=== PATIENT | male | born 1965 | race Caucasian/White ===

== ENCOUNTER → 2018-02-05 16:55 | Outpatient (CLI) | payer OTHER, SELFPAY ==
[2018-02-05 19:08] LABS: Vitamin D,25 Hydroxy 20.8 ng/mL (29.95-100.01)
[2018-02-05 19:15] LABS: Cholesterol 260 mg/dL (200); High Density Lipoprotein 37 mg/dL; PSA,Total - Annual Screen 0.57 ng/mL (0.00-4.00); Thyroid Stim Hormone (TSH) 2.75 uIU/mL (0.358-3.74); Triglycerides 334 mg/dL; Very Low Density Lipoprotein 67 mg/dL (5-40)
== END ==
PROVIDERS: Family Provider Family Medicine; PCP Family Medicine; Visit Provider Family Medicine
DX: E03.9 Hypothyroidism, unspecified (principal); E78.5 Hyperlipidemia, unspecified; E55.9 Vitamin D deficiency, unspecified; Z12.5 Encounter for screening for malignant neoplasm of prostate
CPT/HCPCS: 36415; 80061; 82306; 84153; 84439; 84443; G0103

== ENCOUNTER → 2019-05-27 16:27 | Outpatient (CLI) | payer OTHER, SELFPAY ==
--- NOTE | 2019-05-27 16:29 | CT_ITS ---
STUDY: CT ABDOMEN AND PELVIS WITH AND WITHOUT CONTRAST-CT UROGRAM REASON FOR EXAM: Male, 53 years old. Microhematuria RADIATION DOSAGE (If Supplied By Facility): CTDIvol = ( 26.93 ) mGy, DLP = ( 3506.61 ) mGycm TECHNIQUE: Transaxial images were obtained from the dome of the diaphragm to the symphysis pubis without oral contrast. 100mL Isovue-300 contrast was administered. Sagittal and coronal images were reconstructed. Multiphase imaging in the noncontrasted, corticomedullary and delayed/ureteric phases. Individualized dose optimization techniques were used for this CT. COMPARISON: None. FINDINGS: The visualized lung bases are unremarkable. The visualized portions of the heart are within normal limits. Normal liver. The gallbladder is contracted. Normal spleen. Normal pancreas. Normal bilateral adrenal glands. Noncontrasted imaging shows symmetric kidneys without hydronephrosis or urinary tract calcifications. Isodense cortical lesion of the left kidney measuring 1 cm as initial Hounsfield units of 40. Following IV contrast, the Hounsfield units measure 44, not representing significant contrast enhancement. There is excellent, complete opacification of the right ureter without evidence of filling defects or mass. The left ureter is partially opacified with incomplete distention in the middle third. No obvious left ureter mass seen. Urinary bladder is not well-distended but no obvious urinary bladder mass. Normal visualized stomach. Normal small intestine. There are multiple colonic diverticula consistent with diverticulosis. The appendix is visualized and appears normal. Mild atherosclerosis of the abdominal aorta. Normal inferior vena cava. Normal retroperitoneum. Normal visualized prostate gland. Normal abdominal wall. Normal osseous structures. CT/CT Abd/Pelvis W/WO Contrast IMPRESSION: 1. No hydronephrosis or urinary tract calcifications. 2. Bosniak II left renal cyst (proteinaceous). 3. Atherosclerosis Electronically Signed: Jarrod Corrales MD (Brooks) at 8:56 EST , Service support ,
== END ==
PROVIDERS: Family Provider Family Medicine; PCP Family Medicine; Referring Provider Nurse Practitioner Adult Health; Visit Provider Nurse Practitioner Adult Health
DX: R31.29 Other microscopic hematuria (principal)
CPT/HCPCS: 74178; Q9967

== ENCOUNTER → 2019-09-11 11:56 | Outpatient (CLI) | payer OTHER, SELFPAY ==
[2019-09-11 15:38] LABS: Vitamin D,25 Hydroxy 40.7 ng/mL
[2019-09-11 15:49] LABS: ALB/GLOB Ratio 1.1 RATIO (0.9-2.4); AST(SGOT) 20 U/L (15-37); Alanine Aminotransfer ALT/SGPT 41 U/L (16-61); Albumin, Serum 3.8 g/dL (3.2-5.0); Alkaline Phosphatase 75 U/L (45-117); Anion Gap 7 (5-15); BUN 12 mg/dL (7-18); Calcium,Total 9.2 mg/dL (8.5-10.1); Chloride 105 mmol/L (98-107); Cholesterol 247 mg/dL (200); EST Glomerular Filtration Rate 124 mL/min (>60); Est Glom Filt Rate - Afr Amer 150 mL/min (>60); Globulin 3.6 g/dL (2.2-4.2); Glucose 115 mg/dL (74-106); High Density Lipoprotein 42 mg/dL; Potassium 4.1 mmol/L (3.5-5.1); Protein, Total 7.4 g/dL (6.4-8.2); Sodium Level 136 mmol/L (136-145); Triglycerides 191 mg/dL; Very Low Density Lipoprotein 38 mg/dL (5-40)
== END ==
PROVIDERS: PCP Family Medicine; Referring Provider Family Medicine; Visit Provider Family Medicine
DX: E78.5 Hyperlipidemia, unspecified (principal); Z12.5 Encounter for screening for malignant neoplasm of prostate; E55.9 Vitamin D deficiency, unspecified
CPT/HCPCS: 36415; 80053; 80061; 82306; 84153; G0103

== ENCOUNTER → 2019-10-24 | Outpatient (CLI) | payer OTHER, SELFPAY ==
[2019-10-30 09:08] LABS: Testosterone, % Free 1.91 % (1.50-4.20); Testosterone, Free 5.86 ng/dL (5.00-21.00)
[2019-10-30 15:30] LABS: Sex Hormone-binding Globulin 45.6 nmol/L (19.3-76.4); Testosterone, Total 307 ng/dL (264-916)
== END | disposition home or self-care (01) ==
LOC: MTLAB 10:07
PROVIDERS: PCP Family Medicine; Referring Provider Family Medicine; Visit Provider Family Medicine
DX: N52.9 Male erectile dysfunction, unspecified (principal)
CPT/HCPCS: 36415; 84270; 84402; 84403

== ENCOUNTER → 2019-11-27 | Outpatient (CLI) | payer OTHER, SELFPAY | END | disposition home or self-care (01) | LOC: MTLAB 15:50 | PROVIDERS: PCP Family Medicine; Referring Provider Family Medicine; Visit Provider Family Medicine | DX: N52.9 Male erectile dysfunction, unspecified (principal) | CPT/HCPCS: 36415; 84403 ==

== ENCOUNTER → 2020-02-03 | Outpatient (CLI) | payer OTHER, SELFPAY ==
[2020-02-03 10:38] LABS: AST(SGOT) 20 U/L (15-37); Alanine Aminotransfer ALT/SGPT 36 U/L (16-61); Albumin, Serum 3.8 g/dL (3.2-5.0); Alkaline Phosphatase 83 U/L (45-117); Bilirubin, Direct 0.12 mg/dL (0.00-0.30); Cholesterol 185 mg/dL (200); Globulin 3.5 g/dL (2.2-4.2); High Density Lipoprotein 38 mg/dL; PSA,Total - Annual Screen 0.78 ng/mL (0.00-4.00); Protein, Total 7.3 g/dL (6.4-8.2); Triglycerides 184 mg/dL; Very Low Density Lipoprotein 37 mg/dL (5-40)
== END | disposition home or self-care (01) ==
PROVIDERS: PCP Family Medicine; Referring Provider Family Medicine; Visit Provider Family Medicine
DX: R79.89 Other specified abnormal findings of blood chemistry (principal); Z12.5 Encounter for screening for malignant neoplasm of prostate
CPT/HCPCS: 36415; 80061; 80076; 84153; 84403; G0103

== ENCOUNTER 2020-03-08 17:32 | Inpatient (IN) | payer OTHER, SELFPAY ==
[2020-03-08] VITALS (7 sets, daily range): BP systolic 140–158; BP diastolic 82–103; PULSE 75–84; RESP 14–18; TEMP 36.3–37.2; O2SAT 94–97; BMI 35.5; BMI 35.6; BMI 36.4
--- NOTE | 2020-03-08 17:49 | EKG12_ITS ---
Test Reason : CP ADMIT Blood Pressure : / mmHG Vent. Rate : 076 BPM Atrial Rate : 076 BPM P-R Int : 168 ms QRS Dur : 092 ms QT Int : 388 ms P-R-T Axes : 024 059 025 degrees QTc Int : 436 ms Normal sinus rhythm Normal ECG ] Confirmed by PEARL ONTIVEROS, CARO ([id number]), restaurant expeditor CLARY PAUL ([id number]) on 03/10/2020 7:30:54 AM Referred By: iGnette Perez Confirmed By:CARO KANG MD
[2020-03-08] MEDS: Aspirin 81 MG TAB.CHEW 324 MG PO (17:53)
--- NOTE | 2020-03-08 17:55 | RAD_ITS ---
STUDY: X-RAY CHEST REASON FOR EXAM: Male, 54 years old. chest pain TECHNIQUE: Single frontal view of the chest. COMPARISON: None. FINDINGS: The lungs are clear and expanded. There is no demonstrated pleural abnormality. Normal size heart. Normal mediastinum and jose. Normal visualized pulmonary arteries. Normal visualized aortic arch and descending thoracic aorta. Normal visualized thoracic spine. Normal visualized ribs, clavicles, and shoulders. There is no demonstrated abnormality of the visualized soft tissue structures of the upper abdomen. RAD/Chest 1 View (Portable) IMPRESSION: Normal x-ray examination of the chest. Electronically Signed: Loyd Layne MD at 18:39 EDT , Service support ,
[2020-03-08 18:04] LABS: Absolute Lymphocyte Count 3.43 X10^3/uL (0.83-4.51); Absolute Neutrophil Count 5.7 X10^3/uL (2.0-7.7); Basophil# 0.06 X10^3/uL; Basophil% 0.6 % (0-1); Eosinophil# 0.33 X10^3/uL; Eosinophils% 3.2 % (0-5); Hematocrit 43.2 % (40-54); Hemoglobin 14.5 g/dL (13.0-16.5); Lymphocyte # 3.43 X10^3/ul (4.0); Lymphocyte % 33.2 % (19-41); Mean Corp Hgb Conc 33.6 g/dL (32-36); Mean Corpuscular Hgb 31.2 pg (27.0-32.0); Mean Corpuscular Volume 92.9 fL (80-94); Mean Platelet Vol. 9.9 fl (6.2-12.0); Monocyte# 0.83 X10^3/uL; NRBC Flagged by Analyzer 0 % (0-5); Neutrophil # 5.65 X10^3/uL (2.7-7.7); Neutrophil % 54.6 % (47-70); Platelet Count 301 K/mm3 (150-450); RBC Distribution Width CV 12.6 % (11.6-14.6); Red Blood Count 4.65 M/mm3 (4.6-6.2); White Blood Count 10.3 K/mm3 (4.4-11.0)
--- NOTE | 2020-03-08 18:10 | ED.DCSUM_ITS ---
History of Present Illness Chief Complaint: Chest Pain Informant: Patient, Family Narrative: 54-year-old male with no significant past medical history presents with concern for chest pain. Patient has had intermittent chest pain with exertion in the past 3 weeks. She had increasing pain today. states that he was sweating profusely in bed last night. Admits to shortness of breath. Denies any nausea or vomiting. No history of coronary artery disease. Patient is a heavy smoker. Past Medical History - Allergies and Home Meds Allergies/Adverse Reactions: Allergies No Known Allergies Allergy (Verified 03/08/20 17:54) Primary Care Physician: Jovani Edmonds MD [Primary Care Provider] - Past Medical History: None Surgical History: noncontributory Lives: Spouse/ Significant Other Smoking Status: Heavy Smoker (>10/day) Alcohol: None Drugs: None - Family History Maternal Family History: Reports: Heart Disease - Mother with a history of PCI approximately 25 years prior to current presentation, currently mother is living and turning 87 years old., Hypertension Paternal Family History: Reports: Diabetes Review of Systems General: Denies: Chills, Fever, Sweats Eyes: Denies: Visual changes - bilaterally, Diplopia ENT: Denies: Rhinorrhea, Sore throat Cardiovascular: Reports: Chest pain. Denies: Palpitations Respiratory: Reports: Dyspnea. Denies: Cough, Dyspnea on exertion Gastrointestinal: Denies: Abdominal pain, Nausea, Vomiting, Diarrhea, Melena, Hematochezia Genitourinary: Denies: Dysuria, Hematuria, Frequency Musculoskeletal: Denies: Back pain, Extremity Pain Skin: Denies: Rash, Wounds Neurological: Denies: Headache, Weakness, Numbness Physical Exam Vital Signs/Narrative: Vital Signs Temp Pulse Resp BP Pulse Ox 03/08/20 17:32 99 F 76 16 140/103 H 97 Inital Vital Signs reviewed: Yes General: Well nourished, Well developed, No Acute Distress Head: Normocephalic, Atraumatic Eyes: Perrl, EOMI ENT: Moist mucous membranes, No rhinorrhea Neck: Supple, Nontender Cardiovascular: Regular rate, Regular rhythm, No murmurs Respiratory: No distress, CTA bilaterally, Chest nontender Abdomen: Soft, Nontender, Nondistended, Normal bowel sounds Back: Nontender, Normal Inspection Extremities: Nontender, No edema Skin: Normal color, No rash Neurological: Alert, Oriented x3, Cranial nerves II-XII grossly intact, Normal Strength, Normal Sensation Psychological: Normal affect, Normal Mood Diagnostic/Tx/Re-eval Chest X-Ray - ED: 1 View, Normal - Rhythm Strip Rhythm Strip: Sinus Rhythm Rate: 79 Ectopy: None - EKG Initial EKG Interpretation: Sinus Rhythm - Normal sinus rhythm at 79 bpm. NC interval of 150 ms. QTC of [address] changes. Incomplete right bundle branch block. - Medical Decision Making Patient is well and nontoxic. But otherwise normal vital signs. EKG shows no significant ischemia. Troponin elevated at 0.1. Patient was given aspirin before arrival. Chest x-ray negative. Patient will be given subcutaneous Lovenox. Spoke with clinical psychology professor on-call Dr. Medina who is agreeable with anticoagulation and aspirin. Advise serial troponins and patient will have either stress testing or catheterization tomorrow. Patient agreeable with this plan and admitted in stable condition. Impression: 1. ACS 2. History of tobacco abuse ED Disposition - Plan for ED Patient: Disposition: Acute Care Hospital [facility] Referrals: Jovani Edmonds MD [Primary Care Provider] -
[2020-03-08 18:15] LABS: International Normalized Ratio 0.9; Prothrombin Time (Protime)PT. 11.7 SECONDS (11.7-14.9)
[2020-03-08 18:26] LABS: Anion Gap 6 (5-15); BUN 10 mg/dL (7-18); BUN/Creat Ratio 15.3 RATIO (10-20); Calcium,Total 8.9 mg/dL (8.5-10.1); Chloride 107 mmol/L (98-107); Creatinine, Serum 0.66 mg/dL (0.70-1.30); EST Glomerular Filtration Rate 135 mL/min (>60); Est Glom Filt Rate - Afr Amer 163 mL/min (>60); Estimated Creatinine Clearance 136.28 ml/min; Glucose 100 mg/dL (74-106); Potassium 3.5 mmol/L (3.5-5.1); Sodium Level 139 mmol/L (136-145)
--- NOTE | 2020-03-08 19:15 | HP.PCM_ITS ---
Problem List (1) Unstable angina Status: Acute (2) Elevated troponin Status: Acute (3) Elevated BP without diagnosis of hypertension Status: Acute (4) HLD (hyperlipidemia) Status: Chronic Qualifiers: Hyperlipidemia type: unspecified Qualified Code(s): E78.5 - Hyperlipidemia, unspecified (5) Tobacco use Status: Chronic History of Present Illness Date of Admission: 03/08/20 Chief Complaint: Chest pain The patient is a 54 y/o M w/ PMHx: GERD, HLD, Tobacco use currently on chantix x ~3 weeks who presents to the [facility] ED on 03/08/20 with intermittent chest pain, crushing and stabbing sensation, rated 7 out of 10 in severity prior to ED pr esentation with radiation to the LUE with dyspnea and diaphoresis, worsening over this time, primarily with exertion but now onset with minimal exertion, even steps prompting spouse to bring him to the ED for evaluation. In the ED following rest patient notes chest pain currently resolved, 0 out of 10. Work- up in the ED included T 99, HR 76, BP 140/103, RR 126, 97% on RA, unremarkable CBC, unremarkable coags, BMP with BUN/Cr 10/0.66, Trop 0.105, CXR with no acute cardiopulmonary findings, EKG w/ SR with nonspecific ST-T wave changes with incomplete RBBB. In the ED patient administered ASA 324 mg po x 1. Cardiology paged per ED and pending input. Discussed with ED physician and will plan ASA load, therapeutic lovenox x 1 now. Past Medical History Past Medical History (Chronic Problems): Chronic Problems HLD (hyperlipidemia) (Chronic) Tobacco use (Chronic) Allergies No Known Allergies Allergy (Verified 03/08/20 17:54) Home Medications: Ambulatory Orders Medication Instructions Recorded Atorvastatin Calcium [Lipitor] 20 mg PO QHS 03/08/20 Cholecalciferol (Vitamin D3) 50,000 unit PO TH 03/08/20 [Vitamin D3] Meloxicam 15 mg PO DAILY 03/08/20 Omeprazole [Prilosec] 20 mg PO DAILY 03/08/20 Testosterone [Androgel] 2.5 gm TD DAILY 03/08/20 Varenicline [Chantix] 1 mg PO BID 03/08/20 Surgical History: - - Right knee surgery for cyst, vasectomy, right shoulder surgery, left ring finger surgery, tonsillectomy, sinus surgery. Psychiatric History: No pertinent psych hx Lives: Spouse/ Significant Other Smoking Status: Heavy Smoker (>10/day) Tobacco Use: Cigarettes - Patient currently down to 1 pack/day cigarette tobacco usage since initiation of Chantix x3 weeks, previous this 2+ packs daily. Alcohol: Occasional Drugs: None - *Family History Maternal History Items: Heart Disease - Mother with a history of PCI approximately 25 y ears prior to current presentation, currently mother is living and turning 87 years old., Hypertension Paternal History Items: Diabetes Review of Systems Constitutional: Reports: Weakness, Fatigue. Denies: Anorexia, Chills, Fever, Weight Change HEENT: Denies: Head Aches, Sinus Congestion, Sinus Drainage Cardiovascular: Reports: Chest Pain, Chest Pressure, Heaviness. Denies: Chest Tightness, Light Headedness, Orthopnea, Palpitations, Syncope Respiratory: Reports: Shortness of Breath, Shortness of breath upon exertion. Denies: Cough, Shortness of breath at rest, Sputum production, Wheezing Gastrointestinal: Denies: Abdominal Pain, Nausea, Vomiting Genitourinary: Denies: Dysuria Musculoskeletal: Denies: Joint Pain, Joint Tenderness Skin: Denies: Rash, Wounds Neurological: Denies: Numbness, Tingling, Focal weakness Psychiatric: Denies: Anxiety, Depression, Homicidal Ideations, Suicidal Ideati ons Hematologic/ Lymphatic: Denies: Easy Bruising, Easy Bleeding VTE Information - Inpt Only VTE Present on Admission: No VTE Mechan Device Prophylaxis: SCD's VTE Pharm Prophylaxis ordered?: Yes Subjective: Seated upright in the ED bed, fatigued appearance, no current chest pain but seated and resting. Objective: Physical Examination: General: awake, alert, oriented x 3 and cooperative, seated upright in the ED bed in no apparent distress, no current chest pain. Skin: normal color, turgor, no icterus, cyanosis. HEENT: AT/NC, EOMI, PERRLA, MMM, no carotid bruits or JVD noted. Lungs: CTA bilaterally, moderate effort, moderate decrease BL bases, no rales, ronchi or wheezing. Heart: Regular rate and rhythm; no gallop, rub audible. Abdomen: soft, obese, NTTP, ND, normal BS, no HSM. Extremities: no cyanosis, clubbing, or edema, visible hair bilateral lower extremities, palpable peripheral pulses upper and lower extremities. Neurological: patient awake, alert, oriented x 3; cognitive function intact; pupils equally reactive to light and accomodation; cranial nerves II-XII grossly normal, moving all 4 extremities, no focal deficits, strength mildly to moderately global decreased given acute presentation, currently no chest pain but with any activity severe crushing pain. Psychiatric: affect appears fatigued otherwise normal, no acute evidence of depressive or anxiety feelings. - Physical Exam Vitals/I&O's: Vital Signs Temp Pulse Resp BP Pulse Ox 99 F 76 16 140/103 H 97 03/08/20 17:32 03/08/20 17:32 03/08/20 17:32 03/08/20 17:32 03/08/20 17:32 Oxygen Delivery Method Room Air Weight: 255 lb Body Mass Index (BMI) 35.5 Laboratory Results 03/08/20 17:46: WBC 10.3, RBC 4.65, Hgb 14.5, Hct 43.2, MCV 92.9, MCH 31.2, MCHC 33.6, RDW Std Deviation 43.0, RDW Coeff of Homero 12.6, Plt Count 301, MPV 9.9, Immature Gran % (Auto) 0.400, Neut % (Auto) 54.6, Lymph % (Auto) 33.2, [place] % (Auto) 8.0, Eos % (Auto) 3.2, Baso % (Auto) 0.6, Absolute Neuts (auto) 5.7, Absolute Lymphs (auto) 3.43, Nucleated RBC % 0 03/08/20 17:46: PT 11.7, INR 0.9 03/08/20 17:46: Sodium 139, Potassium 3.5, Chloride 107, Carbon Dioxide 26.0, Anion Gap 6, BUN 10, Creatinine 0.66 L, Estim Creat Clear Calc 136.28, Est GFR (MDRD) Af Amer 163, Est GFR (MDRD) Non-Af 135, BUN/Creatinine Ratio 15.3, Glucose 100, Calcium 8.9, Troponin I 0.105 H Assessment/Plan All Active Problems Unstable angina (Acute) Elevated troponin (Acute) Elevated BP without diagnosis of hypertension (Acute) The patient is a 54 y/o M w/ PMHx: GERD, HLD, Tobacco use currently on chantix x ~3 weeks who presents to the [facility] ED on 03/08/20 with intermittent chest pain, crushing sensation with radiation to the LUE with dyspnea and diaphoresis, worsening over this time, primarily with exertion but now onset with minimal exertion, even steps. 1. Chest Pain secondary to Unstable Angina with Indeterminant Cardiac Enzyme: Work-up in the ED included T 99, HR 76, BP 140/103, RR 126, 97% on RA, unremarkable CBC, unremarkable coags, BMP with BUN/Cr 10/0.66, Trop 0.105, CXR with no acute cardiopulmonary findings, EKG w/ SR with nonspecific ST-T wave changes with incomplete RBBB. Will admit to PCU, place on a monitored bed with serial cardiac enzymes and EKGs. Given presentation, ED contacted Cardiology, Dr. Medina who requested NPO after midnight, planned continued therapeutic lovenox, ASA. Will request ECHO. Will obtain mag and supplement if appropriate. FLP in AM. ASA, NG, morphine. 2. Elevated BP without HTN Diagnosis: BP elevated in the ED upon presentation, labetalol x 1 administered in the ED, will continue to closely monitor. 3. Obesity: Weight loss and lifestyle changes encouraged. 4. Tobacco Abuse: Encouraged cessation, inpatient consultation per RT, hold chantix given cardiac risk with acute presentation as noted. 5. Hyperlipidemia: Continue home statin regimen. AM FLP. 6. GERD: Will continue home PPI. 7. DVT Prophylaxis: SCDs, therapeutic lovenox. Inpatient E&M: 41149 Init Hosp L3
--- NOTE | 2020-03-08 20:30 | ED.RN ---
PCU CALLED AND LOVENOX WAS SENT TO PCU. THEY STATED TO SEND PT AND THEY WOULD ADMINISTER IT.
--- NOTE | 2020-03-08 20:54 | EKG12_ITS ---
Test Reason : Blood Pressure : / mmHG Vent. Rate : 079 BPM Atrial Rate : 079 BPM P-R Int : 150 ms QRS Dur : 102 ms QT Int : 392 ms P-R-T Axes : 029 072 045 degrees QTc Int : 449 ms Normal sinus rhythm Incomplete right bundle branch block Borderline ECG Confirmed by PEARL ONTIVEROS, CARO ([id number]), makeup editor CLARY PAUL ([id number]) on 03/15/2020 11:43:33 AM Referred By: Ginette Perez Confirmed By:CARO KANG MD
--- NOTE | 2020-03-08 20:54 | ECHOCS_ITS ---
Reason For Study: ARRHYTHYMIA Procedure This was a 2D Doppler, Color Flow transthoracic echocardiogram. Exam performed portable in patient room. Left Ventricle Normal LV size. Concentric left ventricular hypertrophy. The estimated ejection fraction is 55-60% %. No regional wall motion abnormalities noted. Right Ventricle Normal right ventricle. Normal systolic function. Atria Normal left atrium. Normal right atrium. Normal atrial septum. Mitral Valve The mitral valve is structurally normal. No prolapse or stenosis seen. Trivial eccentric mitral valve insufficiency. Tricuspid Valve Normal tricuspid valve. Unable to estimate RV systolic pressure due to inadequate jet, pulmonary artery pressure probably normal. Aortic Valve Normal aortic valve. No aortic valve insufficiency. Pulmonic Valve The pulmonic valve is not well visualized. Great Vessels Normal aortic root. Normal pulmonary veins. Normal inferior vena cava. Pericardium/Pleural No pericardial effusion. There is no pleural effusion. Medication Diluted definity 3ml given slow IV push to enhance endocardial definition. MMode/2D Measurements & Calculations LVIDd: 4.7 cm IVSd: 1.1 cm Ao root diam: 3.0 cm LVIDs: 3.2 cm LVPWd: 1.1 cm RVDd: 3.5 cm FS: 31.8 % LAV(MOD-bp): 47.0 ml LVAd ap4: 35.4 cm2 SV(MOD-sp4): 67.7 ml LAV(MOD-bp) Indexed: 20.0 ml/m2 EDV(MOD-sp4): 119.5 ml LAV(MOD-sp2): 53.5 ml EDV(sp4-el): 122.4 ml LAV(MOD-sp4): 39.2 ml LVAs ap4: 21.0 cm2 ESV(MOD-sp4): 51.8 ml ESV(sp4-el): 51.2 ml EF(MOD-sp4): 56.7 % EF(sp4-el): 58.1 % SV(sp4-el): 71.1 ml LA A4 area: 16.5 cm2 LA dimension(2D): 3.7 cm RA A4 area: 13.5 cm2 Time Measurements MV dec time: 0.20 sec Doppler Measurements & Calculations MV E max maico: 97.8 cm/sec Lat Peak E' Maico: 16.2 cm/sec Med Peak E' Maico: 10.9 cm/sec MV A max maico: 77.6 cm/sec E/E' lat: 6.1 E/E' med: 9.0 MV E/A: 1.3 Ao V2 max: 157.3 cm/sec LV V1 max: 132.8 cm/sec PA V2 max: 111.5 cm/sec Ao max P.9 mmHg LV V1 max P.1 mmHg TR max maico: 248.9 cm/sec TR max P.8 mmHg Interpretation Summary Normal LV systolic Function EF 55-60% Ordering Physician: Ginette Perez Referring Physician: JEFF PLASENCIA Performed By: Jaja Andrews RDCS
[2020-03-08] MEDS: Atorvastatin Calcium 20 MG Tablet PO (21:04)
[2020-03-08] MEDS: Enoxaparin 120 MG/0.8 ML Syringe SC (21:04)
[2020-03-08] MEDS: Carvedilol 6.25 MG Tablet PO (21:04)
[2020-03-08] MEDS: 0.9% Normal Saline 1,000 ML 100 ML IV (21:09)
[2020-03-08] MEDS: 0.9% Saline Lock 10 ML Syringe IV (21:09)
[2020-03-08 22:14] LABS: Magnesium 1.9 mg/dL (1.6-2.6)
[2020-03-09] VITALS (22 sets, daily range): BP systolic 114–200; BP diastolic 66–101; PULSE 63–89; RESP 12–35; TEMP 36.2–36.6; O2SAT 80–98
[2020-03-09] MEDS: Carvedilol 6.25 MG Tablet PO ×2 (05:35→22:30)
[2020-03-09] MEDS: Aspirin 81 MG TAB.CHEW PO (05:35)
--- NOTE | 2020-03-09 05:55 | EKG12_ITS ---
Test Reason : AM Blood Pressure : / mmHG Vent. Rate : 077 BPM Atrial Rate : 077 BPM P-R Int : 162 ms QRS Dur : 086 ms QT Int : 382 ms P-R-T Axes : 033 067 052 degrees QTc Int : 432 ms Normal sinus rhythm Normal ECG Confirmed by PEARL ONTIVEROS, CARO ([id number]), research editor CLARY PAUL ([id number]) on 03/10/2020 7:26:50 AM Referred By: Ginette Perez Confirmed By:CARO KANG MD
[2020-03-09] MEDS: 0.9% Normal Saline 1,000 ML 100 ML IV ×2 (06:32→17:55)
[2020-03-09 06:50] LABS: Absolute Lymphocyte Count 3.56 X10^3/uL (0.83-4.51); Absolute Neutrophil Count 4.4 X10^3/uL (2.0-7.7); Basophil# 0.04 X10^3/uL; Basophil% 0.4 % (0-1); Eosinophil# 0.32 X10^3/uL; Eosinophils% 3.6 % (0-5); Hematocrit 43.4 % (40-54); Hemoglobin 14.2 g/dL (13.0-16.5); Lymphocyte # 3.56 X10^3/ul (4.0); Lymphocyte % 39.5 % (19-41); Mean Corp Hgb Conc 32.7 g/dL (32-36); Mean Corpuscular Hgb 30.9 pg (27.0-32.0); Mean Corpuscular Volume 94.3 fL (80-94); Mean Platelet Vol. 9.8 fl (6.2-12.0); Monocyte# 0.69 X10^3/uL; Monocyte% 7.7 % (0-10); NRBC Flagged by Analyzer 0 % (0-5); Neutrophil # 4.37 X10^3/uL (2.7-7.7); Neutrophil % 48.5 % (47-70); Platelet Count 289 K/mm3 (150-450); RBC Distribution Width CV 12.5 % (11.6-14.6); RBC Distribution Width SD 43.1 fl (35.1-43.9)
[2020-03-09 07:21] LABS: ALB/GLOB Ratio 1.1 RATIO (0.9-2.4); AST(SGOT) 24 U/L (15-37); Alanine Aminotransfer ALT/SGPT 36 U/L (16-61); Albumin, Serum 3.4 g/dL (3.2-5.0); Alkaline Phosphatase 66 U/L (45-117); Anion Gap 6 (5-15); BUN 10 mg/dL (7-18); BUN/Creat Ratio 14.6 RATIO (10-20); Calcium,Total 8.4 mg/dL (8.5-10.1); Chloride 111 mmol/L (98-107); Cholesterol 179 mg/dL (200); Creatinine, Serum 0.68 mg/dL (0.70-1.30); EST Glomerular Filtration Rate 128 mL/min (>60); Est Glom Filt Rate - Afr Amer 155 mL/min (>60); Estimated Creatinine Clearance 128.23 ml/min; Globulin 3.2 g/dL (2.2-4.2); Glucose 112 mg/dL (74-106); High Density Lipoprotein 37 mg/dL; Protein, Total 6.6 g/dL (6.4-8.2); Sodium Level 141 mmol/L (136-145); Triglycerides 341 mg/dL; Very Low Density Lipoprotein 68 mg/dL (5-40)
--- NOTE | 2020-03-09 09:27 | CON.PCM_ITS ---
Reason for Consult Date of Consultation: 03/09/20 Reason for Consultation: CAD,NSTEMI History of Present Illness: The patient is a 54 year old M [] This patient presented to the ER yesterday complaining of symptoms of chest pain retrosternal with radiation to the left arm and left back. Symptom has been ongoing for the last 2 weeks. Symptoms is mainly on exertion typical of unstable angina. He has significant family history of CAD mother had a history of coronary artery stent And also has been a heavy smoker. No history of diabetes no history of prior myocardial infarction or stroke. Cardiac examination essentially normal. Electrocardiogram reveals underlying normal sinus with a heart rate of probably 77 nonspecific change mainly in the inferior lead. Subsequent evaluation with the cardiac biomarkers showed mild elevation of serum troponin. He been on medical therapy with Lovenox, beta-pavel, atorvastatin and low-dose aspirin. This morning at bedside his echocardiogram showed LV function is preserved ejection fraction of more than 60%. No segmental wall motion abnormality RV function appeared normal as well. Based on the clinical presentation and significant family history of CAD ongoing symptoms of chest pain for the last 2 weeks very significant for CAD Clinical diagnosis of non-ST elevation myocardial infarction currently on medical therapy stable at rest with no symptoms of chest pain at rest recommend to proceed with cardiac catheterization/approach will be right radial artery approach and will consider myocardial revascularization based on the finding of cardiac catheterization. Cardiac care plan discussed with the patient, nursing staff and will proceed with cardiac catheterization today. Past Medical History Allergies/Adverse Reactions: Allergies No Known Allergies Allergy (Verified 03/08/20 17:54) Home Medications: Ambulatory Orders Medication Instructions Recorded Atorvastatin Calcium [Lipitor] 20 mg PO QHS 03/08/20 Cholecalciferol (Vitamin D3) 50,000 unit PO TH 03/08/20 [Vitamin D3] Meloxicam 15 mg PO DAILY 03/08/20 Omeprazole [Prilosec] 20 mg PO DAILY 03/08/20 Testosterone [Androgel] 2.5 gm TD DAILY 03/08/20 Varenicline [Chantix] 1 mg PO BID 03/08/20 Past Medical History (Chronic Problems): Chronic Problems HLD (hyperlipidemia) (Chronic) Tobacco use (Chronic) Surgical History: - - Right knee surgery for cyst, vasectomy, right shoulder surgery, left ring finger surgery, tonsillectomy, sinus surgery. Psychiatric History: No pertinent psych hx - *Family History Maternal History Items: Heart Disease - Mother with a history of PCI approximately 25 years prior to current presentation, currently mother is living and turning 87 years old., Hypertension Paternal History Items: Diabetes Lives: Spouse/ Significant Other Smoking Status: Current every day smoker Tobacco Use: Cigarettes Alcohol: Occasional Drugs: None Review of Systems - Review of Systems Cardiovascular: Denies: Shortness of Breath, Orthopnea, PND, Peripheral Edema, Palpitations, Lightheadedness, Dizziness, Near Syncope, Syncope Respiratory: Denies: Cough, Sputum Production, Hemoptysis Gastrointestinal: Denies: Hematemesis, Hematochezia, Melena Genitourinary: Denies: Dysuria, Hematuria Skin: Denies: Rash Objective: Vital Signs Temp Pulse Resp BP Pulse Ox 97.8 F 77 17 127/73 H 95 03/09/20 05:33 03/09/20 07:00 03/09/20 05:33 03/09/20 05:33 03/09/20 05:33 Oxygen Delivery Method Room Air Weight: 257 lb 7.999 oz Body Mass Index (BMI) 36.4 Intake and Output for Last 24 Hours 03/07/20 03/08/20 03/09/20 23:59 23:59 23:59 Intake Total 360 / 360 948.33 / 948.33 Balance 360 / 360 948.33 / 948.33 03/08/20 17:46: WBC 10.3, RBC 4.65, Hgb 14.5, Hct 43.2, MCV 92.9, MCH 31.2, MCHC 33.6, Plt Count 301, MPV 9.9, Immature Gran % (Auto) 0.400, Neut % (Auto) 54.6, Lymph % (Auto) 33.2, [place] % (Auto) 8.0, Eos % (Auto) 3.2, Baso % (Auto) 0.6, Absolute Neuts (auto) 5.7, Nucleated RBC % 0 03/08/20 17:46: PT 11.7, INR 0.9 03/08/20 17:46: Sodium 139, Potassium 3.5, Chloride 107, Carbon Dioxide 26.0, Anion Gap 6, BUN 10, Creatinine 0.66 L, Est GFR (MDRD) Af Amer 163, Est GFR (MDRD) Non-Af 135, BUN/Creatinine Ratio 15.3, Glucose 100, Calcium 8.9, Troponin I 0.105 H 03/08/20 21:30: Magnesium 1.9, Troponin I 0.096 H 03/09/20 00:05: Troponin I 0.099 H 03/09/20 06:30: WBC 9.0, RBC 4.60, Hgb 14.2, Hct 43.4, MCV 94.3 H, MCH 30.9, MCHC 32.7, Plt Count 289, MPV 9.8, Immature Gran % (Auto) 0.300, Neut % (Auto) 48.5, Lymph % (Auto) 39.5, [place] % (Auto) 7.7, Eos % (Auto) 3.6, Baso % (Auto) 0.4, Absolute Neuts (auto) 4.4, Nucleated RBC % 0 03/09/20 06:30: Sodium 141, Potassium 4.0, Chloride 111 H, Carbon Dioxide 24.0, Anion Gap 6, BUN 10, Creatinine 0.68 L, Est GFR (MDRD) Af Amer 155, Est GFR (MDRD) Non-Af 128, BUN/Creatinine Ratio 14.6, Glucose 112 H, Calcium 8.4 L, Total Bilirubin 0.30, Triglycerides 341 H, Cholesterol 179, LDL Cholesterol 74, VLDL Cholesterol 68 H, HDL Cholesterol 37 L Rhythm: EKG: ECHO: Stress Test: Cardiac Cath: PCI: CT Surgery: Holter monitor: EPS: PPM: CXR: Chest CT Scan: Assessment/Plan Based on clinical presentation, will proceed with cardiac catheterization Clinical diagnosis #1 CAD, non-ST elevation myocardial function #2 heavy smoker 3. Significant family history of CAD. We will proceed with corticosteroid patient and discuss plan of myocardial revascularization based on the findings. Risk and benefit of the procedure explained in detail to the patient elected to proceed informed consent obtained.
--- NOTE | 2020-03-09 09:47 | CASEMGMT ---
Addendum entered by Mackenzie Cuellar 03/09/20 13:31: Also [facility] and [facility] are in-network. Sofia AGUILA CM Original Note: According to the [facility] website, the following are in-network tertiary facilities: [place], [facility], [facility], [facility], and . Sofia AGUILA CM
--- NOTE | 2020-03-09 12:33 | PN_ITS ---
<Elton Kapadia - Last Filed: 03/09/20 12:33> Patient Problems: Active and Suspected Problems Unstable angina (Acute) Elevated troponin (Acute) Elevated BP without diagnosis of hypertension (Acute) Reason for Visit: Chest pain Subjective: Patient seen and examined prior to heart catheterization today. He is resting comfortably in bed no acute distress. He has no chest pain, shortness of breath, tightness, pressure, heaviness. This past week he has been getting lightheaded on standing, he reports he did not experience this today. No lower extremity edema. No palpitations. Vitals/I&O's: Vital Signs Temp Pulse Resp BP Pulse Ox 97.8 F 77 17 127/73 H 95 03/09/20 05:33 03/09/20 11:00 03/09/20 05:33 03/09/20 05:33 03/09/20 07:48 Oxygen Delivery Method Room Air Weight: 257 lb 7.999 oz Body Mass Index (BMI) 36.4 Intake and Output for Last 24 Hours 03/07/20 03/08/20 03/09/20 23:59 23:59 23:59 Intake Total 360 / 360 1008.33 / 1008.33 Balance 360 / 360 1008.33 / 1008.33 General: Alert, Oriented x3, Cooperative HEENT: Atraumatic, PERRLA, EOMI, Normocephalic Neck: Supple, No JVD, Negative Carotid Bruits Lungs: Clear to auscultation, Normal air movement Cardiovascular: Regular rate, No murmurs Abdomen: Bowel Sounds Present, Soft, Non Tender Extremities: No edema, Capillary Refill Less than 3 Seconds Skin: No rashes, No breakdown Musculoskeletal: No Tenderness to Palpation of Joints or Extremities Neurological: Cranial nerves II-XII grossly intact Psych/Mental Status: Normal Affect, Appropriate, Alert and oriented to time, place, person, mood and affect Laboratory Results 03/08/20 17:46: WBC 10.3, RBC 4.65, Hgb 14.5, Hct 43.2, MCV 92.9, MCH 31.2, MCHC 33.6, RDW Std Deviation 43.0, RDW Coeff of Homero 12.6, Plt Count 301, MPV 9.9, Immature Gran % (Auto) 0.400, Neut % (Auto) 54.6, Lymph % (Auto) 33.2, Salem % (Auto) 8.0, Eos % (Auto) 3.2, Baso % (Auto) 0.6, Absolute Neuts (auto) 5.7, Absolute Lymphs (auto) 3.43, Nucleated RBC % 0 03/08/20 17:46: PT 11.7, INR 0.9 03/08/20 17:46: Sodium 139, Potassium 3.5, Chloride 107, Carbon Dioxide 26.0, Anion Gap 6, BUN 10, Creatinine 0.66 L, Estim Creat Clear Calc 136.28, Est GFR (MDRD) Af Amer 163, Est GFR (MDRD) Non-Af 135, BUN/Creatinine Ratio 15.3, Glucose 100, Calcium 8.9, Troponin I 0.105 H 03/08/20 21:30: Magnesium 1.9, Troponin I 0.096 H 03/09/20 00:05: Troponin I 0.099 H 03/09/20 06:30: WBC 9.0, RBC 4.60, Hgb 14.2, Hct 43.4, MCV 94.3 H, MCH 30.9, MCHC 32.7, RDW Std Deviation 43.1, RDW Coeff of Homero 12.5, Plt Count 289, MPV 9.8, Immature Gran % (Auto) 0.300, Neut % (Auto) 48.5, Lymph % (Auto) 39.5, Salem % (Auto) 7.7, Eos % (Auto) 3.6, Baso % (Auto) 0.4, Absolute Neuts (auto) 4.4, Absolute Lymphs (auto) 3.56, Nucleated RBC % 0 03/09/20 06:30: Sodium 141, Potassium 4.0, Chloride 111 H, Carbon Dioxide 24.0, Anion Gap 6, BUN 10, Creatinine 0.68 L, Estim Creat Clear Calc 128.23, Est GFR (MDRD) Af Amer 155, Est GFR (MDRD) Non-Af 128, BUN/Creatinine Ratio 14.6, Glucose 112 H, Calcium 8.4 L, Total Bilirubin 0.30, AST 24, ALT 36, Alkaline Phosphatase 66, Total Protein 6.6, Albumin 3.4, Globulin 3.2, Albumin/Globulin Ratio 1.1, Triglycerides 341 H, Cholesterol 179, LDL Cholesterol 74, VLDL Cholesterol 68 H, HDL Cholesterol 37 L Current Medications Acetaminophen (Acetaminophen 325 Mg Tablet) 650 mg PO Q6H PRN PRN PRN Reason: Pain Score 1-10/Temp > 100.7 F Al Hydroxide/Mg Hydroxide (Mag Hydrox/Al Hydrox/Simeth 30 Ml Udc) 30 ml PO Q6H PRN PRN PRN Reason: Gastric Burning Albuterol Sulfate (Albuterol 2.5 Mg/3 Ml Vial.Neb.) 2.5 mg INHALATION Q2H PRN PRN PRN Reason: Dyspnea, wheezing Aspirin (Aspirin 81 Mg Tab.Chew) 81 mg PO DAILY@0800 [facility] Last Admin: 03/09/20 05:35 Dose: 81 mg Documented by: Atorvastatin Calcium (Atorvastatin Calcium 20 Mg Tablet) 20 mg PO QHS [facility] Last Admin: 03/08/20 21:04 Dose: 20 mg Documented by: Carvedilol (Carvedilol 6.25 Mg Tablet) 6.25 mg PO BID [facility] Last Admin: 03/09/20 05:35 Dose: 6.25 mg Documented by: Enoxaparin Sodium (Enoxaparin 120 Mg/0.8 Ml Syringe) 120 mg SC Q12 [facility] Guaifenesin (Guaifenesin 10 Ml Udc (200mg/10ml)) 20 ml PO Q4H PRN PRN PRN Reason: COUGH Sodium Chloride () 1,000 mls @ 100 mls/hr IV .Q10H [facility] Last Admin: 03/09/20 06:32 Dose: 100 mls/hr Documented by: Magnesium Hydroxide (Magnesium Hydroxide 30 Ml Udc) 30 ml PO DAILY PRN PRN PRN Reason: Constipation Melatonin (Melatonin 3 Mg Tablet) 3 mg PO QHS PRN PRN PRN Reason: INSOMNIA Morphine Sulfate (Morphine 2 Mg/Ml Syringe) 2 mg IV Q3H PRN PRN PRN Reason: Pain Score 6-10 Nitroglycerin (Nitroglycerin (Inpatient Use) 0.4 Mg Tab.Subl) 0.4 mg SUBLINGUAL Q5M PRN PRN Reason: CARDIAC/CHEST PAIN Ondansetron HCl (Ondansetron 4 Mg/2 Ml Vial) 4 mg IV Q8H PRN PRN PRN Reason: NAUSEA/VOMITING Oxycodone HCl (Oxycodone 5 Mg Tablet) 5 mg PO Q4H PRN PRN PRN Reason: Pain Score 4-5 Pantoprazole Sodium (Pantoprazole Sodium 20 Mg Tablet) 20 mg PO DAILY [place] Prochlorperazine Edisylate (Prochlorperazine 10 Mg/2 Ml Vial) 5 mg IV Q4H PRN PRN PRN Reason: Breakthrough Nausea/Vomiting Psyllium Hydrophilic Mucilloid (Psyllium 1 Packet) 1 packet PO DAILY PRN PRN PRN Reason: Constipation Senna/Docusate Sodium (Senna/Docusate Sodium 1 Tablet) 2 tablet PO BID PRN PRN PRN Reason: Constipation Sodium Chloride (0.9% Saline Lock 10 Ml Syringe) 10 - 40 ml IV UD PRN PRN Reason: SALINE FLUSH Last Admin: 03/08/20 21:09 Dose: 10 ml Documented by: Throat Lozenges (Benzocaine/Menthol 1 Lozenge) 1 lozenge MUCOUS MEM Q2H PRN PRN PRN Reason: SORE THROAT STROKE Vital Signs/Narrative: Vital Signs Pulse 03/09/20 11:00 77 Medical Necessity - Tobacco Use Smoking Status: Current every day smoker Tobacco Use: Cigarettes Assessment/Plan All Active Problems Unstable angina (Acute) Elevated troponin (Acute) Elevated BP without diagnosis of hypertension (Acute) 1. NSTEMI - to medical laboratory manager today. continue asa/statin/coreg 2. Nicotine abuse - needs complete cessation. Pt on chantix at home. 3. GERD - ppi 5. HTN - initiated coreg 6. HLD - statin DVT ppx: held for cath This patient was seen by Elton Kapadia PA-C under the supervision of Doctor Nara. <Lisandra Bains - Last Filed: 03/09/20 13:38> Vitals/I&O's: Vital Signs Temp Pulse Resp BP Pulse Ox 97.8 F 77 17 127/73 H 95 03/09/20 05:33 03/09/20 11:00 03/09/20 05:33 03/09/20 05:33 03/09/20 07:48 Oxygen Delivery Method Room Air Weight: 257 lb 7.999 oz Body Mass Index (BMI) 36.4 Intake and Output for Last 24 Hours 03/07/20 03/08/20 03/09/20 23:59 23:59 23:59 Intake Total 360 / 360 1008.33 / 1008.33 Balance 360 / 360 1008.33 / 1008.33 Laboratory Results 03/08/20 17:46: WBC 10.3, RBC 4.65, Hgb 14.5, Hct 43.2, MCV 92.9, MCH 31.2, MCHC 33.6, RDW Std Deviation 43.0, RDW Coeff of Homero 12.6, Plt Count 301, MPV 9.9, Immature Gran % (Auto) 0.400, Neut % (Auto) 54.6, Lymph % (Auto) 33.2, Salem % (Auto) 8.0, Eos % (Auto) 3.2, Baso % (Auto) 0.6, Absolute Neuts (auto) 5.7, Absolute Lymphs (auto) 3.43, Nucleated RBC % 0 03/08/20 17:46: PT 11.7, INR 0.9 03/08/20 17:46: Sodium 139, Potassium 3.5, Chloride 107, Carbon Dioxide 26.0, Anion Gap 6, BUN 10, Creatinine 0.66 L, Estim Creat Clear Calc 136.28, Est GFR (MDRD) Af Amer 163, Est GFR (MDRD) Non-Af 135, BUN/Creatinine Ratio 15.3, Glucose 100, Calcium 8.9, Troponin I 0.105 H 03/08/20 21:30: Magnesium 1.9, Troponin I 0.096 H 03/09/20 00:05: Troponin I 0.099 H 03/09/20 06:30: WBC 9.0, RBC 4.60, Hgb 14.2, Hct 43.4, MCV 94.3 H, MCH 30.9, MCHC 32.7, RDW Std Deviation 43.1, RDW Coeff of Homero 12.5, Plt Count 289, MPV 9.8, Immature Gran % (Auto) 0.300, Neut % (Auto) 48.5, Lymph % (Auto) 39.5, Salem % (Auto) 7.7, Eos % (Auto) 3.6, Baso % (Auto) 0.4, Absolute Neuts (auto) 4.4, Absolute Lymphs (auto) 3.56, Nucleated RBC % 0 03/09/20 06:30: Sodium 141, Potassium 4.0, Chloride 111 H, Carbon Dioxide 24.0, Anion Gap 6, BUN 10, Creatinine 0.68 L, Estim Creat Clear Calc 128.23, Est GFR (MDRD) Af Amer 155, Est GFR (MDRD) Non-Af 128, BUN/Creatinine Ratio 14.6, Glucose 112 H, Calcium 8.4 L, Total Bilirubin 0.30, AST 24, ALT 36, Alkaline Phosphatase 66, Total Protein 6.6, Albumin 3.4, Globulin 3.2, Albumin/Globulin Ratio 1.1, Triglycerides 341 H, Cholesterol 179, LDL Cholesterol 74, VLDL Cholesterol 68 H, HDL Cholesterol 37 L Current Medications Acetaminophen (Acetaminophen 325 Mg Tablet) 650 mg PO Q6H PRN PRN PRN Reason: Pain Score 1-10/Temp > 100.7 F Al Hydroxide/Mg Hydroxide (Mag Hydrox/Al Hydrox/Simeth 30 Ml Udc) 30 ml PO Q6H PRN PRN PRN Reason: Gastric Burning Albuterol Sulfate (Albuterol 2.5 Mg/3 Ml Vial.Neb.) 2.5 mg INHALATION Q2H PRN PRN PRN Reason: Dyspnea, wheezing Aspirin (Aspirin 81 Mg Tab.Chew) 81 mg PO DAILY@0800 [facility] Last Admin: 03/09/20 05:35 Dose: 81 mg Documented by: Atorvastatin Calcium (Atorvastatin Calcium 20 Mg Tablet) 20 mg PO QHS [facility] Last Admin: 03/08/20 21:04 Dose: 20 mg Documented by: Carvedilol (Carvedilol 6.25 Mg Tablet) 6.25 mg PO BID [facility] Last Admin: 03/09/20 05:35 Dose: 6.25 mg Documented by: Enoxaparin Sodium (Enoxaparin 120 Mg/0.8 Ml Syringe) 120 mg SC Q12 [facility] Guaifenesin (Guaifenesin 10 Ml Udc (200mg/10ml)) 20 ml PO Q4H PRN PRN PRN Reason: COUGH Sodium Chloride () 1,000 mls @ 100 mls/hr IV .Q10H [facility] Last Admin: 03/09/20 06:32 Dose: 100 mls/hr Documented by: Magnesium Hydroxide (Magnesium Hydroxide 30 Ml Udc) 30 ml PO DAILY PRN PRN PRN Reason: Constipation Melatonin (Melatonin 3 Mg Tablet) 3 mg PO QHS PRN PRN PRN Reason: INSOMNIA Morphine Sulfate (Morphine 2 Mg/Ml Syringe) 2 mg IV Q3H PRN PRN PRN Reason: Pain Score 6-10 Nitroglycerin (Nitroglycerin (Inpatient Use) 0.4 Mg Tab.Subl) 0.4 mg SUBLINGUAL Q5M PRN PRN Reason: CARDIAC/CHEST PAIN Ondansetron HCl (Ondansetron 4 Mg/2 Ml Vial) 4 mg IV Q8H PRN PRN PRN Reason: NAUSEA/VOMITING Oxycodone HCl (Oxycodone 5 Mg Tablet) 5 mg PO Q4H PRN PRN PRN Reason: Pain Score 4-5 Pantoprazole Sodium (Pantoprazole Sodium 20 Mg Tablet) 20 mg PO DAILY [place] Prochlorperazine Edisylate (Prochlorperazine 10 Mg/2 Ml Vial) 5 mg IV Q4H PRN PRN PRN Reason: Breakthrough Nausea/Vomiting Psyllium Hydrophilic Mucilloid (Psyllium 1 Packet) 1 packet PO DAILY PRN PRN PRN Reason: Constipation Senna/Docusate Sodium (Senna/Docusate Sodium 1 Tablet) 2 tablet PO BID PRN PRN PRN Reason: Constipation Sodium Chloride (0.9% Saline Lock 10 Ml Syringe) 10 - 40 ml IV UD PRN PRN Reason: SALINE FLUSH Last Admin: 03/08/20 21:09 Dose: 10 ml Documented by: Throat Lozenges (Benzocaine/Menthol 1 Lozenge) 1 lozenge MUCOUS MEM Q2H PRN PRN PRN Reason: SORE THROAT STROKE Vital Signs/Narrative: Vital Signs Pulse 03/09/20 11:00 77 Assessment/Plan Patient seen by Elton Kapadia PA-C under my supervision Patient seen and examined. He was admitted with a complaint of chest pain and found to have elevated troponins. He is being managed for Nonstemi. he is to go for cardiac cath today. Patient had no complaints this morning. He denied shortness of breath, cough, chest pain, palpitations, dizziness, nausea or vomiting. Review of systems otherwise negative. O/E:' Vital Signs Temp Pulse Resp BP Pulse Ox 97.8 F 77 17 127/73 H 95 03/09/20 05:33 03/09/20 11:00 03/09/20 05:33 03/09/20 05:33 03/09/20 07:48 General: Alert, Oriented x3, Cooperative HEENT: Atraumatic, PERRLA, EOMI, Normocephalic Neck: Supple, No JVD, Negative Carotid Bruits Lungs: Clear to auscultation, Normal air movement Cardiovascular: Regular rate, No murmurs Abdomen: Bowel Sounds Present, Soft, Non Tender Extremities: No edema, Capillary Refill Less than 3 Seconds Skin: No rashes, No breakdown Musculoskeletal: No Tenderness to Palpation of Joints or Extremities Neurological: Cranial nerves II-XII grossly intact Psych/Mental Status: Normal Affect, Appropriate, Alert and oriented to time, place, person, mood and affect Plan is for patient to have cardiac cath today. to continue aspirin and plavix, as well as high intensity statin, and carvedilol. cardiology on board. Counseled to quit smoking. Rest as per Elton Kapadia PA-C's note, which I have reviewed and endorsed. Inpatient E&M: 35452 Subs Hosp L3
--- NOTE | 2020-03-09 13:15 | NURSING ---
Report called to ICU nurse for pt to be transferred to ICU from senior cytogenetics laboratory director.
[2020-03-09 14:26] LABS: ACT Activated Clotting Time 208 sec (74-137)
[2020-03-09 14:26] LABS: ACT Activated Clotting Time 219 sec (74-137)
[2020-03-09 14:26] LABS: ACT Activated Clotting Time 186 sec (74-137)
--- NOTE | 2020-03-09 14:44 | EKG12_ITS ---
Test Reason : CHEST PAIN Blood Pressure : / mmHG Vent. Rate : 076 BPM Atrial Rate : 076 BPM P-R Int : 160 ms QRS Dur : 084 ms QT Int : 382 ms P-R-T Axes : -08 048 042 degrees QTc Int : 429 ms Normal sinus rhythm Normal ECG When compared with ECG of 09-MAR-2020 19:05, MANUAL COMPARISON REQUIRED, DATA IS UNCONFIRMED Confirmed by GERSON ONTIVEROS, SELENA ([id number]), assistant film editor DALLAS MACIAS ([id number]) on 03/19/2020 12:46:20 PM Referred By: Ginette Perez Confirmed By:MARIELENA NIETO MD
--- NOTE | 2020-03-09 19:05 | EKG12_ITS ---
Test Reason : CP Blood Pressure : / mmHG Vent. Rate : 076 BPM Atrial Rate : 076 BPM P-R Int : 156 ms QRS Dur : 086 ms QT Int : 378 ms P-R-T Axes : 011 063 086 degrees QTc Int : 425 ms Normal sinus rhythm ST elevation consider inferior injury or acute infarct * ACUTE NE Abnormal ECG Confirmed by PEARL ONTIVEROS, CARO ([id number]), scientific editor CLARY PAUL ([id number]) on 03/15/2020 12:58:46 PM Referred By: Ginette Perez Confirmed By:CARO KANG MD
--- NOTE | 2020-03-09 19:31 | EKG12_ITS ---
Test Reason : PCI Blood Pressure : / mmHG Vent. Rate : 075 BPM Atrial Rate : 075 BPM P-R Int : 150 ms QRS Dur : 092 ms QT Int : 378 ms P-R-T Axes : 009 065 046 degrees QTc Int : 422 ms Normal sinus rhythm Normal ECG When compared with ECG of 09-MAR-2020 05:02, No significant change was found Confirmed by GERSON ONTIVEROS, SELENA ([id number]), clinical editor DALLAS MACIAS ([id number]) on 03/19/2020 12:46:29 PM Referred By: Ginette Perez Confirmed By:MARIELENA NIETO MD
--- NOTE | 2020-03-09 19:40 | RAD_ITS ---
STUDY: X-RAY CHEST REASON FOR EXAM: Male, 54 years old. STEMI TECHNIQUE: 2 AP portable view of the chest. COMPARISON: March 08, 2020 FINDINGS: The lungs are clear and expanded. There is no demonstrated pleural abnormality. Normal size heart. Normal mediastinum and jose. Normal visualized pulmonary arteries. Normal visualized aortic arch and descending thoracic aorta. Normal visualized thoracic spine. Normal visualized ribs, clavicles, and shoulders. There is no demonstrated abnormality of the visualized soft tissue structures of the upper abdomen. RAD/Chest 1 View (Portable) IMPRESSION: Normal x-ray examination of the chest. Electronically Signed: Alex Mendes MD at 20:39 EDT , Service support ,
--- NOTE | 2020-03-09 20:08 | NURSING ---
During shift report, pt c/o chest pain. EKG performed and STEMI alert was called. Dr. Medina and Dr. Stiles at bedside. Cath team called in and pt transported to clinical laboratory service teacher via pt bed. has spoken with pt and is waiting in clinical laboratory service teacher waiting room for procedure to complete. R Femoral Sheath in intact, soft, and no bruit or thrill present, no S&S of hematoma. Pt to be transferred to [facility] for further treatment, post cath. Pt was pain free at time of transport to clinical laboratory service teacher and transferred with O2 and on compliance monitor. Chart has been printed and ready for transport. Pt in agreement with plan of care and transfer.
[2020-03-09] MEDS: HEPARIN/D5w 25,000 UNITS 25,000 UNITS/250 ML IV.SOLN. 7 UNITS IV (20:43)
--- NOTE | 2020-03-09 20:44 | NURSING ---
Pt arrived to room via bed, on surveillance monitor, heparin gtt initiated and infusing. No PTT drawn prior to initiation of gtt.
[2020-03-09] MEDS: LORazepam 1 MG Tablet PO (22:30)
[2020-03-09] MEDS: Atorvastatin Calcium 40 MG Tablet PO (22:30)
[2020-03-09] MEDS: TICAGRELOR 90 MG TABLET PO (22:30)
[2020-03-10] VITALS: BP 163/73; PULSE 72; RESP 13; TEMP 36.8; O2SAT 98
--- NOTE | 2020-03-10 00:11 | NURSING ---
Jodi, ASSEMBLER BODY at [facility] called to obtain report. Pt will be going to room 358 in ICU due to having a sheath present.
[2020-03-10 00:45] VITALS: BP 161/84; PULSE 82
[2020-03-10] MEDS: 0.9% Saline Lock 10 ML Syringe IV (00:45)
[2020-03-10] MEDS: hydrALAZINE 20 MG/ML Vial 10 MG IV (00:45)
[2020-03-10 01:00] VITALS: BP 140/69; PULSE 87; RESP 16; O2SAT 99
--- NOTE | 2020-03-10 01:40 | NURSING ---
[facility] has delayed transfer for patient to 02:00.
[2020-03-10 02:00] VITALS: BP 146/71; PULSE 79; RESP 14; O2SAT 98
--- NOTE | 2020-03-10 02:19 | NURSING ---
[facility] is here for transport. Called updated report to MINGO Zapata at [facility].
[2020-03-10 02:48] VITALS: BP 160/81; PULSE 86; RESP 16; O2SAT 99
--- NOTE | 2020-03-10 03:20 | PCM.DC.SUM ---
Discharge Date and Diagnosis Date of Admission: 03/08/20 Date of Discharge: 03/10/20 - Primary Discharge Diagnosis Acute Problems: Active Problems #1 acute non-ST elevation MD, status post PCI to RCA. #2 right coronary artery dissection. - Secondary Discharge Diagnosis Chronic Problems: Chronic Problems HLD (hyperlipidemia) (Chronic) Tobacco use (Chronic) Hospital Course and Treatment Imaging Results: 03/09/20 19:40 CXR [Chest 1 View (Portable)] [RAD] Urgent Clinical Impression(s) from Imaging Studies Chest X-Ray 03/08/20 17:55 IMPRESSION: Normal x-ray examination of the chest. Electronically Signed: Loyd Layne MD at 18:39 EDT , Service support , Chest X-Ray 03/09/20 19:40 IMPRESSION: Normal x-ray examination of the chest. Electronically Signed: Alex Mendes MD at 20:39 EDT , Service support , Procedures: 2-D Echocardiogram, Cardiac catheterization, EKG Summary of Care Provided: The patient is a 54 year old M presented to the emergency room because of chest pain and he was found to have acute non-ST elevation MD. Patient is a big-time smoker, had a history of hyperlipidemia and strong family history of CAD. His EKG revealed no acute ST elevation. Troponin was borderline elevated. Cardiology consulted and patient underwent cardiac catheterization, found to have mid RCA 99% stenosis, stent was placed and after initial stent deployment, it was found that patient has ostial RCA dissection extending all the way down to the distal RCA, then proceeded with stenting of the proximal RCA to distal RCA with deployment of 7 stents. Patient was started on aspirin, Plavix, statins, Coreg, therapeutic Lovenox twice daily and he was transferred to ICU. Temporary pacemaker was placed. Last night at around 7:30 PM, patient had an episode of chest pain for which EKG done and revealed ST elevation on lead III and significant ST segment depression in lead aVL. The pain lasted for couple of minutes and resolved spontaneously. Repeat EKG revealed resolution of those changes. Cardiology arrived and recommended to go for emergent cardiac catheterization. Emergent cardiac catheterization performed again and showed that the RCA stents are patent without evidence of acute occlusion. It was presumed that his chest pain and EKG changes are due to either vasospasm or small clot. Patient was started on IV heparin drip. Cardiology recommended to transfer the patient to a tertiary care center where cardiothoracic surgery coverage is available. I spoke with the [facility] transfer line and I spoke with the CT surgeon who agreed to accept the patient if patient needed surgery and recommended to talk to cardiology for admission. The [facility] transfer line called me back and I spoke with Dr. Anthony, the vrt mechanic, and he accepted the patient in transfer for further treatment if needed. Patient was transferred to [facility] in a stable condition. - Physical Exam Vitals/I&O's: Vital Signs Temp Pulse Resp BP Pulse Ox 98.2 F 86 16 160/81 H 99 03/10/20 00:00 03/10/20 02:48 03/10/20 02:48 03/10/20 02:48 03/10/20 02:48 Oxygen Flow Rate (L/min) 2 Oxygen Delivery Method Nasal Cannula Weight: 257 lb 7.999 oz Body Mass Index (BMI) 36.4 Intake and Output for Last 24 Hours 03/08/20 03/09/20 03/10/20 23:59 23:59 23:59 Intake Total 360 / 360 2639.63 / 2639.63 0 / 0 Output Total 1100 / 1100 0 / 0 Balance 360 / 360 1539.63 / 1539.63 0 / 0 General: Alert, Oriented x3, Cooperative, No apparent distress HEENT: Atraumatic, PERRLA, EOMI, Normocephalic Oral: Moist Mucosa, No Gingival or Mucosal Lesions/ Ulcerations Neck: Supple, No JVD, Negative Carotid Bruits, Trachea Midline, Thyroid Normal Size and Texture Lungs: Clear to auscultation, Normal air movement, No rhonchi, No wheeze, No rales Cardiovascular: Regular rate, Regular Rhythm, Normal S1, Normal S2, PMI Normal Abdomen: Bowel Sounds Present, Soft, Non Tender, Non-Distended, No Hepato-splenomegaly Extremities: No clubbing, No cyanosis, No edema Skin: No rashes, No breakdown Lymphatic: No Cervical, Supraclavicular, or Inguinal Adenopathy Neurological: Cranial nerves II-XII grossly intact, Neuro grossly intact Laboratory Results 03/09/20 06:30: WBC 9.0, RBC 4.60, Hgb 14.2, Hct 43.4, MCV 94.3 H, MCH 30.9, MCHC 32.7, RDW Std Deviation 43.1, RDW Coeff of Homero 12.5, Plt Count 289, MPV 9.8, Immature Gran % (Auto) 0.300, Neut % (Auto) 48.5, Lymph % (Auto) 39.5, Dickens % (Auto) 7.7, Eos % (Auto) 3.6, Baso % (Auto) 0.4, Absolute Neuts (auto) 4.4, Absolute Lymphs (auto) 3.56, Nucleated RBC % 0 03/09/20 06:30: Sodium 141, Potassium 4.0, Chloride 111 H, Carbon Dioxide 24.0, Anion Gap 6, BUN 10, Creatinine 0.68 L, Estim Creat Clear Calc 128.23, Est GFR (MDRD) Af Amer 155, Est GFR (MDRD) Non-Af 128, BUN/Creatinine Ratio 14.6, Glucose 112 H, Calcium 8.4 L, Total Bilirubin 0.30, AST 24, ALT 36, Alkaline Phosphatase 66, Total Protein 6.6, Albumin 3.4, Globulin 3.2, Albumin/Globulin Ratio 1.1, Triglycerides 341 H, Cholesterol 179, LDL Cholesterol 74, VLDL Cholesterol 68 H, HDL Cholesterol 37 L 03/09/20 13:01: Activated Clotting Time 186 H 03/09/20 13:34: Activated Clotting Time 219 H 03/09/20 14:00: Activated Clotting Time 208 H Home Medications: Medications to take at Discharge Atorvastatin Calcium [Lipitor] 20 mg PO QHS 03/08/20 Cholecalciferol (Vitamin D3) [Vitamin D3] 50,000 unit PO TH 03/08/20 Meloxicam 15 mg PO DAILY 03/08/20 Omeprazole [Prilosec] 20 mg PO DAILY 03/08/20 Testosterone [Androgel] 2.5 gm TD DAILY 03/08/20 Varenicline [Chantix] 1 mg PO BID 03/08/20 Primary Care Physician: Jovani Edmonds MD [Primary Care Provider] - Patient Instructions: ED Chest Pain NonCardiac Disposition: Acute care Hospital Minutes spent on discharge:: 32 Patient Condition:: Guarded Medical Necessity - Tobacco Use Smoking Status: Current every day smoker Tobacco Use: Cigarettes Meaningful Use Info Meaningful Use Diagnoses (Choose all that apply): None applicable Inpatient E&M: 38133 Disch Hosp
== END 2020-03-10 02:55 | disposition short-term general hospital (02) | DRG 246 ==
LOC: ED 19:23 → PCU 19:34 → ICU 03-09 13:46
PROVIDERS: Admitting Provider Family Medicine; Emergency Provider Emergency Medicine; PCP Family Medicine; Referring Provider Family Medicine; Visit Provider Student in an Organized Health Care Education/Training Program
DX: I25.42 Coronary artery dissection (principal); I21.4 Non-ST elevation (NSTEMI) myocardial infarction; E78.5 Hyperlipidemia, unspecified; Z79.899 Other long term (current) drug therapy; F17.210 Nicotine dependence, cigarettes, uncomplicated; R03.0 Elevated blood-pressure reading, without diagnosis of hypertension; E66.9 Obesity, unspecified; K21.9 Gastro-esophageal reflux disease without esophagitis; Z68.36 Body mass index [BMI] 36.0-36.9, adult
CPT/HCPCS: 36415; 71045; 80048; 80053; 80061; 83735; 84484; 85025; 85347; 85610; 92928; 93005; 93306; 93454; 99152; 99153; 99251; 99285; J7030; Q9957; Q9967; A4216; C1725; C1757; C1769; C1874; C1887; C1894; C8929; C9600; G0463

== ENCOUNTER → 2020-07-22 09:13 | Outpatient (CLI) | payer OTHER, SELFPAY ==
[2020-07-08 10:29] VITALS: BMI 36.8
--- NOTE | 2020-07-22 16:39 | PFTCOMP ---
COMPLETE PULMONARY FUNCTION TEST INTERPRETATION Brief HPI: Patient is a 54 year old male, currently under the care of myself, who presents to [facility] for complete pulmonary function tests secondary to diagnosis of dyspnea. Respiratory therapist reports good effort and reproducible results. Interpretation: Forced expiration spirometry shows a mild large airways obstructive ventilatory defect with an FEV1 of 92% predicted. There is no significant bronchodilator response by strict ATS criteria. Spirograms are of good quality and plateau slowly, indicating slowly emptying areas of the lungs. The respiratory flow volume loop shows decreased expiratory flow rates at all lung volumes consistent with airway obstruction. Lung volumes by body plethysmography show a normal total lung capacity at 7.28 L, 104% predicted. All other lung volumes are within normal limits. Diffusion capacity by carbon monoxide is at the lower limit of normal at 77% predicted. The airway resistance is normal. No previous pulmonary function tests were available for review. Impression: Irreversible mild large airways obstructive ventilatory defect with a symmetric reduction diffusing capacity, in a pattern consistent with COPD.
== END ==
PROVIDERS: PCP Family Medicine; Referring Provider Internal Medicine Critical Care Medicine; Visit Provider Internal Medicine Critical Care Medicine
DX: R06.02 Shortness of breath (principal)
CPT/HCPCS: 94060; 94726; 94729

== ENCOUNTER → 2020-07-29 07:50 | Outpatient (CLI) | payer OTHER, SELFPAY ==
[2020-07-08 10:29] VITALS: BMI 36.8
[2020-07-29 08:15] VITALS: PULSE 100; PULSE 77; PULSE 82; PULSE 90; PULSE 94; PULSE 96; PULSE 97; PULSE 98; O2SAT 93; O2SAT 94; O2SAT 95; O2SAT 96; O2SAT 97
--- NOTE | 2020-07-30 09:53 | WT_ITS ---
PSN 6 Minute Walk Test - 6 Minute Walk Test 6 Minute Walk Test: 6 Minute Walk Test PSN:6-Minute Walk Test Start: 07/29/20 08:21 Freq: Status: Active Protocol: [id number] Document 07/29/20 08:15 [facility] (Rec: 07/29/20 08:25 [facility] [id number]) 6 Minute Walk Test Date Performed 07/29/20 Time Performed 08:15 Height 5 ft 10 in Weight: 260 lb Weight in Pounds 260.[address]: Dr Zavala Assistive device used: None Pre-test Oxygen Delivery Method Room Air Pulse Ox (%) 96 Pulse Rate (60-100 beats/min) 77 Dyspnea Frankie Scale (0-10) 0 Exertion Frankie Scale (6-20) 6 1st minute Oxygen Delivery Method Room Air Pulse Ox (%) 93 Pulse Rate (60-100 beats/min) 90 2nd minute Oxygen Delivery Method Room Air Pulse Ox (%) 94 Pulse Rate (60-100 beats/min) 96 3rd minute Oxygen Delivery Method Room Air Pulse Ox (%) 94 Pulse Rate (60-100 beats/min) 97 4th minute Oxygen Delivery Method Room Air Pulse Ox (%) 94 Pulse Rate (60-100 beats/min) 100 5th minute Oxygen Delivery Method Room Air Pulse Ox (%) 94 Pulse Rate (60-100 beats/min) 98 6th minute Oxygen Delivery Method Room Air Pulse Ox (%) 95 Pulse Rate (60-100 beats/min) 94 Dyspnea Frankie Scale (0-10) 2 Exertion Frankie Scale (6-20) 8 Post-test Oxygen Delivery Method Room Air Pulse Ox (%) 97 Pulse Rate (60-100 beats/min) 82 Full Laps Walked 20 Partial Lap, Number of Tiles Walked 32 Total Distance Walked (ft) 1212 - Interpretation Interpretation: The patient ambulated 1212 feet over the course of 6 minutes beginning on room air without assistive devices or breaks. Pretesting oxygen saturation was noted to be 96% on room air. With ambulation, the jacque oxygen saturation was 93%. There was no significant exertional oxygen desaturation. - Recommendations Recommendations: There is no indication for the use of supplemental oxygen at this time.
== END ==
PROVIDERS: PCP Family Medicine; Referring Provider Internal Medicine Critical Care Medicine; Visit Provider Internal Medicine Critical Care Medicine
DX: R06.02 Shortness of breath (principal)
CPT/HCPCS: 94618

== ENCOUNTER → 2020-09-09 12:11 | Outpatient (CLI) | payer OTHER, SELFPAY ==
[2020-09-09 11:04] VITALS: BMI 37.5
[2020-09-09 13:16] LABS: ALB/GLOB Ratio 1.1 RATIO (0.9-2.4); AST(SGOT) 24 U/L (15-37); Alanine Aminotransfer ALT/SGPT 47 U/L (16-61); Albumin, Serum 3.8 g/dL (3.2-5.0); Alkaline Phosphatase 97 U/L (45-117); Anion Gap 4 (5-15); BUN 10 mg/dL (7-18); BUN/Creat Ratio 12.9 RATIO (10-20); Calcium,Total 8.9 mg/dL (8.5-10.1); Chloride 106 mmol/L (98-107); Cholesterol 139 mg/dL (200); Creatinine, Serum 0.77 mg/dL (0.70-1.30); EST Glomerular Filtration Rate 111 mL/min (>60); Est Glom Filt Rate - Afr Amer 134 mL/min (>60); Globulin 3.6 g/dL (2.2-4.2); Glucose 111 mg/dL (74-106); High Density Lipoprotein 39 mg/dL; Potassium 4.1 mmol/L (3.5-5.1); Protein, Total 7.4 g/dL (6.4-8.2); Sodium Level 136 mmol/L (136-145); Thyroid Stim Hormone (TSH) 2.17 uIU/mL (0.358-3.74); Triglycerides 141 mg/dL; Very Low Density Lipoprotein 28 mg/dL (5-40)
== END ==
PROVIDERS: PCP Family Medicine; Referring Provider Internal Medicine Cardiovascular Disease; Visit Provider Internal Medicine Cardiovascular Disease
DX: E78.5 Hyperlipidemia, unspecified (principal); I10 Essential (primary) hypertension; I25.10 Atherosclerotic heart disease of native coronary artery without angina pectoris; R07.9 Chest pain, unspecified; Z95.5 Presence of coronary angioplasty implant and graft
CPT/HCPCS: 36415; 80053; 80061; 83735; 84443

== ENCOUNTER → 2020-09-14 11:47 | Outpatient (CLI) | payer OTHER, SELFPAY ==
[2020-09-09 11:04] VITALS: BMI 37.5
== END ==
PROVIDERS: PCP Family Medicine; Referring Provider Internal Medicine Cardiovascular Disease; Visit Provider Internal Medicine Cardiovascular Disease
DX: R00.0 Tachycardia, unspecified (principal); R07.9 Chest pain, unspecified; I25.10 Atherosclerotic heart disease of native coronary artery without angina pectoris; E78.5 Hyperlipidemia, unspecified; I10 Essential (primary) hypertension; Z95.5 Presence of coronary angioplasty implant and graft
CPT/HCPCS: 93225; 93226

== ENCOUNTER → 2020-09-21 | Outpatient (CLI) | payer OTHER, SELFPAY ==
[2020-09-09 11:04] VITALS: BMI 37.5
== END | disposition home or self-care (01) ==
PROVIDERS: PCP Family Medicine; Visit Provider Family Medicine
DX: R05 Cough (principal)
CPT/HCPCS: 87635; U0002

== ENCOUNTER → 2020-09-29 07:03 | Outpatient (CLI) | payer OTHER, SELFPAY ==
[2020-09-09 11:04] VITALS: BMI 37.5
--- NOTE | 2020-09-29 07:04 | ECHOCS_ITS ---
Reason For Study: ARRHYTHMIA Procedure This was a 2D Doppler, Color Flow transthoracic echocardiogram. The study was technically difficult. Contrast injection was performed. Exam performed in department. Left Ventricle Normal LV size. Segmental dysfunction with preserved ejection fraction (see wall motion). The estimated ejection fraction is 65 %. Transmitral doppler flow suggestive of impaired relaxation of left ventricle. Infero-Basal: Hypokinetic. Right Ventricle Normal RV size. Normal systolic function. Atria Normal left atrium. Normal right atrium. No doppler evidence for ASD. Mitral Valve There is no mitral annular calcification. Normal mitral valve. Trivial mitral valve insufficiency. Tricuspid Valve Normal tricuspid valve. Trivial tricuspid valve insufficiency. Unable to estimate RV systolic pressure/pulmonary artery pressure due to technically difficult study. Aortic Valve Trisinus/trileaflet aortic valve. Normal aortic valve. Pulmonic Valve The pulmonic valve is not well visualized. Great Vessels Normal sized aortic root. Pericardium/Pleural No pericardial effusion. Medication Diluted definity 4.0ml given slow IV push to enhance endocardial definition. MMode/2D Measurements & Calculations RVDd: 3.2 cm Ao root diam: 3.2 cm LAV(MOD-bp): 37.2 ml LAV(MOD-bp) Indexed: 15.7 ml/m2 LAV(MOD-sp2): 37.7 ml LAV(MOD-sp4): 33.9 ml SV(MOD-sp4): 47.3 ml LVAd ap4: 28.6 cm2 LVAd ap2: 30.6 cm2 LVLd ap4: 8.7 cm LVLd ap2: 8.9 cm EDV(MOD-sp4): 76.5 ml EDV(MOD-sp2): 84.6 ml EDV(sp4-el): 80.0 ml EDV(sp2-el): 89.2 ml LVAs ap4: 16.7 cm2 LVAs ap2: 17.3 cm2 LVLs ap4: 7.7 cm LVLs ap2: 7.9 cm ESV(MOD-sp4): 29.2 ml ESV(MOD-sp2): 32.4 ml ESV(sp4-el): 30.8 ml ESV(sp2-el): 32.1 ml EF(MOD-sp4): 61.9 % EF(MOD-sp2): 61.7 % EF(sp4-el): 61.5 % SV(MOD-sp2): 52.2 ml SV(sp4-el): 49.2 ml LA A4 area: 15.1 cm2 LA dimension(2D): 3.2 cm RA A4 area: 13.5 cm2 Time Measurements MV dec time: 0.26 sec Doppler Measurements & Calculations MV E max maico: 62.0 cm/sec Lat Peak E' Maico: 9.4 cm/sec Med Peak E' Maico: 7.7 cm/sec MV A max maico: 74.4 cm/sec E/E' lat: 6.6 E/E' med: 8.0 MV E/A: 0.83 Ao V2 max: 138.5 cm/sec LV V1 max: 121.2 cm/sec PA V2 max: 145.5 cm/sec Ao max P.7 mmHg LV V1 max P.9 mmHg ECHO/Echo Complete W/ Contrast Interpretation Summary The study was technically difficult. Contrast injection was performed. Segmental dysfunction with preserved ejection fraction (see wall motion). The estimated ejection fraction is 65 %. Trivial mitral valve insufficiency. Trivial tricuspid valve insufficiency. Unable to estimate RV systolic pressure/pulmonary artery pressure due to techni kristel difficult study. Ordering Physician: Frank Sanches Referring Physician: Mario Edmonds Performed By: Keke Myers, WONG, RVT
--- NOTE | 2020-09-29 09:53 | STRESSREP_ITS ---
Stress Test Report Date: 09-29-2020 Procedure: Exercise tolerance test/imaging study Indications: Shortness of breath/dyspnea on exertion; CAD; PCI Consent: Per the patient Procedure: The patient exercised on a Sherwin protocol for 5 minutes and 45 seconds completing Stage 1 and 2 minutes and 45 seconds of Stage II achieving a peak heart rate of 162 bpm (98% predicted maximal heart rate) with a peak blood pressure 222/80 mmHg and a peak MET capacity of 7 METs. The baseline ECG demonstrated normal sinus rhythm. The peak exercise ECG demonstrated no obvious ECG changes. There were occasional PVCs during her exercise and recovery. The functional capacity was considered average. There was no complaint of chest discomfort during exercise or recovery. The examination was discontinued secondary to dyspnea. Impression: 1. Technically adequate (percent predicted maximal heart rate greater than 85%) exercise tolerance test 2. Peak exercise ECG with no obvious ECG changes 3. There were occasional PVCs during exercise and recovery 4. Nuclear images pending Myocardial perfusion imaging study: Technique: The patient was injected with 14.9 mCi of technetium 99m Cardiolite and subsequently rest SPECT Cardiolite nuclear imaging was obtained in the horizontal long, vertical long, and short axis views. The patient exercised on a Sherwin protocol for 5 minutes and 45 seconds completing Stage 1 and 2 minutes and 45 seconds of Stage II achieving a peak heart rate of 162 bpm (98% predicted maximal heart rate) with a peak blood pressure 222/80 mmHg and a peak MET capacity of 7 METs. The patient was injected with 45.0 mCi of technetium 99m Cardiolite and subsequently stress SPECT Cardiolite nuclear imaging was obtained in the horizontal long, vertical long, and short axis views. A gated Cardiolite study at peak stress was obtained. Interpretation: Rest and stress SPECT Cardiolite nuclear imaging status post realignment, normalization, and attenuation correction, demonstrates the appearance of relative uniform tracer uptake and myocardial perfusion appearing within normal limits. There is end systolic thickening and brightening. The gated Cardiolite study demonstrates myocardial thickening and inward wall motion. The reported LVEF is 71%. Impression: 1. Rest and stress SPECT Cardiolite nuclear imaging demonstrate relative uniform tracer uptake and myocardial perfusion appearing within normal limits. 2. The gated Cardiolite study reports an LVEF of 71-%. This note was generated with [employer] software. It may contain incorrect words, spelling, and punctuation that were not noted in checking the note before signing.
== END ==
PROVIDERS: PCP Family Medicine; Referring Provider Internal Medicine Cardiovascular Disease; Visit Provider Internal Medicine Cardiovascular Disease
DX: R07.9 Chest pain, unspecified (principal); R06.00 Dyspnea, unspecified; R06.02 Shortness of breath; I25.10 Atherosclerotic heart disease of native coronary artery without angina pectoris; E78.5 Hyperlipidemia, unspecified; I10 Essential (primary) hypertension; Z95.5 Presence of coronary angioplasty implant and graft
CPT/HCPCS: 78452; 93017; 93306; A9500; Q9957; A4216; C8929

== ENCOUNTER → 2020-11-01 08:50 | Outpatient (CLI) | payer OTHER, SELFPAY ==
[2020-10-06 09:05] VITALS: BMI 38.5
--- NOTE | 2020-11-01 08:52 | VDLE_ITS ---
Reason For Study: PAIN/SWELLING RIGHT LEFT GSV is normal. GSV is normal. CFV is compressible, spontaneous, phasic, CFV is compressible, spontaneous, phasic, competent and demonstrates normal competent, and demonstrates normal augmentation. augmentation. FV is compressible, spontaneous, phasic, FV is compressible, spontaneous, phasic, competent and demonstrates normal competent and demonstrates normal augmentation. augmentation. POP V is compressible, spontaneous, phasic, POP V is compressible, spontaneous, phasic, competent and demonstrates normal competent and demonstrates normal augmentation. augmentation. T/P Trunk is compressible. T/P Trunk is compressible. PTV is compressible. PTV is compressible. RT PerV is compressible. LT PerV is compressible. Procedure This is a venous duplex using B-mode, color flow and spectral Doppler. Exam performed in department. The exam was diagnostic. A preliminary report was called and/or faxed to Dr. Tomlin @ 9:30 am @ [phone]. VL/Venous Duplex US - Rickie Extrem Interpretation Summary Bilateral no evidence of DVT or SVT. Ordering Physician: Ed Tomlin Referring Physician: Mario Edmonds Performed By: Keke Myers RVT, RDCS and Student
== END ==
PROVIDERS: PCP Family Medicine; Referring Provider Surgery Vascular Surgery; Visit Provider Surgery Vascular Surgery
DX: M79.89 Other specified soft tissue disorders (principal); M79.605 Pain in left leg; M79.604 Pain in right leg; J98.4 Other disorders of lung; E78.00 Pure hypercholesterolemia, unspecified; I25.2 Old myocardial infarction; E11.9 Type 2 diabetes mellitus without complications; M19.90 Unspecified osteoarthritis, unspecified site; F41.9 Anxiety disorder, unspecified; I51.9 Heart disease, unspecified
CPT/HCPCS: 93970

== ENCOUNTER → 2021-04-12 09:11 | Outpatient (CLI) | payer OTHER, SELFPAY ==
[2021-04-12 12:40] LABS: ALB/GLOB Ratio 0.9 RATIO (0.9-2.4); AST(SGOT) 18 U/L (15-37); Alanine Aminotransfer ALT/SGPT 41 U/L (16-61); Albumin, Serum 3.6 g/dL (3.2-5.0); Alkaline Phosphatase 107 U/L (45-117); Anion Gap 11 (5-15); BUN 14 mg/dL (7-18); BUN/Creat Ratio 18.4 RATIO (10-20); Calcium,Total 9.2 mg/dL (8.5-10.1); Chloride 104 mmol/L (98-107); Cholesterol 138 mg/dL (200); Creatinine, Serum 0.76 mg/dL (0.70-1.30); EST Glomerular Filtration Rate 113 mL/min (>60); Est Glom Filt Rate - Afr Amer 137 mL/min (>60); Glucose 117 mg/dL (74-106); High Density Lipoprotein 36 mg/dL; Potassium 4.1 mmol/L (3.5-5.1); Protein, Total 7.6 g/dL (6.4-8.2); Sodium Level 136 mmol/L (136-145); Triglycerides 212 mg/dL; Very Low Density Lipoprotein 42 mg/dL (5-40)
[2021-04-12 12:46] LABS: LDH 166 U/L (87-241)
[2021-04-13 13:43] LABS: HCG BETA-SUBUNIT QUANT. < 1 mIU/mL (0-3)
== END ==
PROVIDERS: PCP Family Medicine; Referring Provider Family Medicine; Visit Provider Family Medicine
DX: N40.0 Benign prostatic hyperplasia without lower urinary tract symptoms (principal); N50.812 Left testicular pain; R79.89 Other specified abnormal findings of blood chemistry
CPT/HCPCS: 36415; 80053; 80061; 82105; 83615; 84153; 84403; 84702; G0103

== ENCOUNTER → 2021-05-02 16:58 | Outpatient (CLI) | payer OTHER, SELFPAY ==
[2021-05-02 18:09] LABS: Hematocrit 42.3 % (40-54); Mean Corp Hgb Conc 33.1 g/dL (32-36); Mean Corpuscular Hgb 30.3 pg (27.0-32.0); Mean Corpuscular Volume 91.6 fL (80-94); Platelet Count 354 K/mm3 (150-450); RBC Distribution Width CV 12.7 % (11.6-14.6); RBC Distribution Width SD 42.3 fl (35.1-43.9); Red Blood Count 4.62 M/mm3 (4.6-6.2); White Blood Count 10.5 K/mm3 (4.4-11.0)
[2021-05-02 18:29] LABS: Vitamin D,25 Hydroxy 57.8 ng/mL
[2021-05-02 18:34] LABS: Anion Gap 7 (5-15); BUN 15 mg/dL (7-18); BUN/Creat Ratio 20.6 RATIO (10-20); Calcium,Total 8.8 mg/dL (8.5-10.1); Chloride 106 mmol/L (98-107); Creatinine, Serum 0.73 mg/dL (0.70-1.30); EST Glomerular Filtration Rate 119 mL/min (>60); Est Glom Filt Rate - Afr Amer 143 mL/min (>60); Glucose 92 mg/dL (74-106); Magnesium 2.3 mg/dL (1.6-2.6); Phosphorus 3.8 mg/dL (2.5-4.9); Potassium 3.9 mmol/L (3.5-5.1); Sodium Level 137 mmol/L (136-145); Thyroid Stim Hormone (TSH) 1.79 uIU/mL (0.358-3.74)
== END ==
PROVIDERS: PCP Family Medicine; Visit Provider Family Medicine
DX: M48.50XA Collapsed vertebra, not elsewhere classified, site unspecified, initial encounter for fracture (principal)
CPT/HCPCS: 36415; 80048; 82306; 83735; 83970; 84100; 84443; 85027

== ENCOUNTER → 2021-05-05 13:30 | Outpatient (CLI) | payer OTHER, SELFPAY ==
--- NOTE | 2021-05-05 13:40 | BD_ITS ---
STUDY: DUAL ENERGY X-RAY ABSORPTIOMETRY / DXA REASON FOR EXAM: Male, 55 years old. M48.50XZ -- COLLAPSED VERTEBRA TECHNIQUE: Bone Mineral Density (BMD) measurements of lumbar spine and bilateral hips were obtained. COMPARISON: None. FINDINGS: Lumbar Spine (L1-L4): g/cm2 (0.919) / T-score (-1.6) / Z-score (-1.1) Findings are suggestive of osteopenia with a moderate fracture risk. Left Femur Total: g/cm2 (0.867) / T-score (-1.1) / Z-score (-0.7) Left Femoral Neck: g/cm2 (0.686) / T-score (-1.8) / Z-score (-0.9) Right Femur Total: g/cm2 (0.898) / T-score (-0.9) / Z-score (-0.5) Right Femoral Neck: g/cm2 (0.686) / T-score (-1.8) / Z-score (-0.9) BD/Dexa Bone Density Study IMPRESSION: The patient is considered osteopenic as outlined below according to World Oc Organization (WHO) criteria with a moderate fracture risk. Reference Information: The T-score is the number of standard deviations above or below the standard which is normal for young adults at their peak bone mineral density. The World Health Organization (WHO) interprets the T-scores as follows: Above -1 Normal bone density Between -1 and -2.5 Osteopenia Equal to / or below -2.5 Osteoporosis As a practical clinical guideline, osteopenia may be graded as follows: Mild -1 through -1.5 Moderate -1.6 through -2.0 Severe -2.1 through -2.4 The Z-score is the number of standard deviations above or below age-matched controls. A Z-score of less than -1.5 would be considered abnormal. References: 1. NIH Osteoporosis and Related Bone Diseases www osteo.org 2. International Society for Clinical Densitometry www iscd.org 3. National Osteoporosis Foundation www nof.org Electronically Signed: Semaj Gomez MD at 15:48 EST , Service support ,
== END ==
PROVIDERS: PCP Family Medicine; Visit Provider Family Medicine
DX: M48.50XA Collapsed vertebra, not elsewhere classified, site unspecified, initial encounter for fracture (principal)
CPT/HCPCS: 77080

== ENCOUNTER 2021-07-16 08:49 | Outpatient (CLI) | payer OTHER, SELFPAY ==
--- NOTE | 2021-07-16 08:51 | CT_ITS ---
STUDY: CT CHEST WITHOUT CONTRAST- LOW DOSE SCREENING PROTOCOL REASON FOR EXAM: Male, 55 years old. Current smoker. pack per year history. No current symptoms of lung cancer or pulmonary infection. Shared decision-making with referring PCP documented in patient''s record. RADIATION DOSAGE (If Supplied By Facility): CTDIvol = ( 4.02 ) mGy, DLP = ( 142.95 ) mGycm TECHNIQUE: Low dose screening CT examination performed from the base of the neck to the upper abdomen. Sagittal and coronal reformatted images performed. Sagittal and coronal MIP images provided. The measurements provided are average, rounded measurements per ACR guidelines. COMPARISON: None. FINDINGS: Mild emphysema. No noncalcified nodule or mass. There is no demonstrated pleural abnormality. Normal heart and pericardium. There are calcifications of the coronary arteries. Normal mediastinum. Normal hilar regions. Normal unenhanced pulmonary arteries. Normal aorta arch and descending thoracic aorta. Normal osseous structures. There is no demonstrated abnormality of the visualized upper abdomen. CT/Low Dose CT Lung Screening IMPRESSION: 1. No significant indeterminate incidental findings requiring additional imaging. 2. Incidental findings include calcified coronary artery plaque. ASSESSMENT CATEGORY: LungRADS 1 - Negative. Continue annual screening with LDCT in 12 months, per established ACR guidelines. Electronically Signed: Mike Frye MD at 18:08 EST ,
== END 2021-07-16 23:59 | disposition home or self-care (01) ==
LOC: CT 08:50
PROVIDERS: PCP Family Medicine; Referring Provider Nurse Practitioner Acute Care; Visit Provider Nurse Practitioner Acute Care
DX: F17.210 Nicotine dependence, cigarettes, uncomplicated (principal); J43.9 Emphysema, unspecified; I49.9 Cardiac arrhythmia, unspecified
CPT/HCPCS: 71271

== ENCOUNTER → 2022-01-25 | Outpatient (CLI) | payer OTHER, SELFPAY ==
[2022-01-25 18:58] LABS: ALB/GLOB Ratio 1.1 RATIO (0.9-2.4); AST(SGOT) 23 U/L (15-37); Alanine Aminotransfer ALT/SGPT 40 U/L (16-61); Albumin, Serum 3.8 g/dL (3.2-5.0); Alkaline Phosphatase 87 U/L (45-117); Anion Gap 9 (5-15); BUN 10 mg/dL (7-18); BUN/Creat Ratio 10.9 RATIO (10-20); Calcium,Total 9.2 mg/dL (8.5-10.1); Chloride 104 mmol/L (98-107); Cholesterol 151 mg/dL (200); Creatinine, Serum 0.92 mg/dL (0.70-1.30); EST Glomerular Filtration Rate 91 mL/min (>60); Est Glom Filt Rate - Afr Amer 110 mL/min (>60); Globulin 3.6 g/dL (2.2-4.2); Glucose 116 mg/dL (74-106); High Density Lipoprotein 44 mg/dL; Potassium 3.9 mmol/L (3.5-5.1); Protein, Total 7.4 g/dL (6.4-8.2); Sodium Level 137 mmol/L (136-145); Thyroid Stim Hormone (TSH) 2.74 uIU/mL (0.358-3.74); Triglycerides 168 mg/dL; Very Low Density Lipoprotein 34 mg/dL (5-40)
== END | disposition home or self-care (01) ==
LOC: MFPLAB 14:54
PROVIDERS: PCP Family Medicine; Referring Provider Family Medicine; Visit Provider Family Medicine
DX: E11.9 Type 2 diabetes mellitus without complications (principal)
CPT/HCPCS: 36415; 80053; 80061; 84403; 84443

== ENCOUNTER → 2022-01-27 | Outpatient (CLI) | payer OTHER, SELFPAY | END | disposition home or self-care (01) | LOC: SL 20:19 | PROVIDERS: PCP Family Medicine; Visit Provider Internal Medicine Critical Care Medicine | DX: G47.10 Hypersomnia, unspecified (principal) | CPT/HCPCS: 95810 ==

== ENCOUNTER → 2022-03-29 | Outpatient (CLI) | payer OTHER, SELFPAY ==
[2022-03-29 08:50] LABS: Hematocrit 42.8 % (40-54); Hemoglobin 14.4 g/dL (13.0-16.5); Mean Corp Hgb Conc 33.6 g/dL (32-36); Mean Corpuscular Hgb 30.3 pg (27.0-32.0); Mean Corpuscular Volume 89.9 fL (80-94); Mean Platelet Vol. 9.7 fl (6.2-12.0); Platelet Count 349 K/mm3 (150-450); RBC Distribution Width CV 12.7 % (11.6-14.6); RBC Distribution Width SD 41.9 fl (35.1-43.9); Red Blood Count 4.76 M/mm3 (4.6-6.2); White Blood Count 9.6 K/mm3 (4.4-11.0)
[2022-03-29 09:13] LABS: Ferritin 31 ng/mL (26-388); Iron 74 ug/dL (65-175); Iron Binding Capacity,Total 414 ug/dL (250-450); PERCENT IRON SATURATION 17.9 % (15.0-55.0)
== END | disposition home or self-care (01) ==
LOC: PAVLAB 08:36
PROVIDERS: PCP Family Medicine; Referring Provider Nurse Practitioner Acute Care; Visit Provider Nurse Practitioner Acute Care
DX: G25.81 Restless legs syndrome (principal)
CPT/HCPCS: 36415; 82728; 83540; 83550; 85027

== ENCOUNTER → 2022-12-28 | Outpatient (CLI) | payer OTHER, SELFPAY ==
--- NOTE | 2022-12-28 17:55 | CT_ITS ---
INDICATION: smoker and gt; 40 pack years Smoked 2ppd x45 years ago, quit 3 weeks ago. EXAMINATION: - CT Low Dose CT Chest for Lung Cancer Screening A radiation dose optimization technique was used for this scan. Radiation CTDIvol 3.18 Radiation DLP 113.98 COMPARISON: 07/16/[address] FINDINGS: Low dose Noncontrast serial CT axial images through the chest with coronal and sagittal reformatted series. MEDIASTINUM: Dense coronary artery atherosclerotic calcifications with possible coronary artery stent. Small amount of fluid within the esophagus. Noncontrast mediastinum is otherwise unremarkable. LUNG PARENCHYMA: Dominant pulmonary nodules: 5 mm right lower lobe and 4 mm right minor fissure pulmonary nodules on axial image 172 of series 2. 4 mm right major fissure pulmonary nodule on axial image 142. 5 mm left major fissure pulmonary nodule on axial image 194. No acute pulmonary parenchymal abnormality. Significant bilateral upper lobe emphysematous lung changes. PLEURA: No pleural effusion. No pneumothorax. BONES: Stable lower thoracic vertebral body compression deformity. UPPER ABDOMEN: Unremarkable. CT/Low Dose CT Lung Screening IMPRESSION: Pulmonary nodules measuring up to 5 mm, stable from only 18 months prior. Lung-RADS CATEGORY 2: Benign Appearance Nodules. Annual screening with low dose CT in 12 months. Electronically Signed: Timur Grewal MD at 23:47 EDT ,
== END | disposition home or self-care (01) ==
LOC: CT 17:51
PROVIDERS: PCP Family Medicine; Referring Provider Nurse Practitioner Acute Care; Visit Provider Nurse Practitioner Acute Care
DX: F17.210 Nicotine dependence, cigarettes, uncomplicated (principal)
CPT/HCPCS: 71271

== ENCOUNTER 2023-11-30 09:47 | Emergency (ER) | payer OTHER, SELFPAY ==
[2023-11-30] VITALS (9 sets, daily range): BP systolic 117–143; BP diastolic 70–95; PULSE 74–81; RESP 11–18; TEMP 36.4–36.6; O2SAT 95–100; BMI 39.2
--- NOTE | 2023-11-30 09:55 | ED.RN ---
Pts boss called- unable to reach, left a voicemail about needing drug testing.
--- NOTE | 2023-11-30 10:00 | EDS_ITS ---
HPI History of Present Illness HPI Narrative: Patient presents with injury to his right ankle and left knee that occurred today. Patient states he tripped over a carpet and fell forward. Patient states his right ankle had a deformity. Patient states he was having difficulty bearing weight on his left leg due to the pain in his knee. Patient states his left knee felt weak. Patient admits to some tingling into his left foot. Patient denies any pain at the present time. Patient states the pain is worse w hen he tries to move it however. Patient states his last tetanus was 4 years ago. Chief Complaint: Lower Extremity Injury Informant: patient Occured/Mechanism Mechanism/Context: Yes fall and Yes same level fall Onset/Context/Timing Onset: Today Context: Sudden Onset Timing: Continuous Location: Right ankle, left knee Current Severity: Gone Worsened by: Movement Relieved by: Rest Associated Symptoms Associated Symptoms: Positive for Parasthesia and Weakness; Negative for Loss of Funtion PFSH PFS Medical History GERD (gastroesophageal reflux disease) Presence of stent in coronary artery (~03/09/20) Atherosclerotic heart disease of [place] coronary artery without angina pectoris Essential hypertension CAD (coronary artery disease) Non-ST elevation [place] (NSTEMI) Tobacco use HLD (hyperlipidemia) Home Medications ?Medication ?Instructions ?Recorded ?Last Taken ?Type aspirin 81 mg tablet,delayed 81 mg PO DAILY 07/08/20 Unknown History release (Adult Aspirin Regimen) atorvastatin 80 mg tablet 80 mg PO QHS 09/09/20 Unknown History omeprazole 20 mg capsule,delayed 40 mg PO DAILY gerd 09/09/20 Unknown History release sildenafil 25 mg tablet (Viagra) 25 mg PO DAILY PRN 09/09/20 Unknown History nitroglycerin 0.4 mg sublingual 0.4 mg sublingual Q5-15M PRN 05/23/21 Unknown H istory tablet albuterol sulfate 90 mcg/actuation 2 puff inhalation Q6H PRN 06/28/21 Unknown Rx aerosol inhaler shortness of breath or wheezing #18 grams ascorbate calcium (vitamin C) 500 500 mg PO DAILY 06/28/21 Unknown History mg tablet meloxicam 15 mg tablet 15 mg PO DAILY 06/28/21 Unknown History varenicline 1 mg tablet See Rx Instructions PO .COMPLEX 09/26/21 Unknown History lisinopril 5 mg tablet 5 mg PO DAILY #90 tabs 10/19/21 Unknown Rx ticagrelor 60 mg tablet (Brilinta) 60 mg PO BID #180 tabs 10/19/21 Unknown Rx fluticasone propionate 50 2 spray intranasal DAILY #18.2 mL 08/17/23 Unknown Rx mcg/actuation nasal spray,suspension ropinirole 2 mg tablet 2 mg PO DAILY #30 tabs 08/17/23 Unknown Rx tiotropium 2.5 mcg-olodaterol 2.5 2 inh inhalation DAILY #3 ea 08/17/23 Unknown Rx mcg/actuation mist for inhalation (Stiolto Respimat) calcium carbonate 600 mg PO DAILY 11/30/23 Unknown History cholecalciferol (vitamin D3) 1,250 1,250 mcg PO QWEEK 11/30/23 Unknown History mcg (50,000 unit) capsule fluoxetine 40 mg capsule 40 mg PO DAILY 11/30/23 Unknown History isosorbide mononitrate 60 mg 60 mg PO 11/30/23 Unknown History tablet,extended release 24 hr metformin 500 mg tablet,extended 1,000 mg PO DAILY 11/30/23 Unknown History release 24 hr metoprolol succinate 25 mg 25 mg PO QHS 11/30/23 Unknown History tablet,extended release 24 hr montelukast 10 mg tablet 10 mg PO QHS 11/30/23 Unknown History testosterone cypionate 200 mg/mL 100 mg IM 11/30/23 Unknown History intramuscular oil Allergy/AdvReac Type Severity Reaction Status Date / Time No Known Allergies Allergy Verified 11/30/23 09:51 Family History Father Diabetes Mother Myocardial infarction CAD (coronary artery disease) Surgical History History of removal of testicle Presence of coronary angioplasty implant and graft (~03/09/20) H/O knee surgery H/O shoulder surgery H/O sinus surgery History of tonsillectomy Social History Smoking Status: Former smoker Tobacco: How many years used: 45 alcohol intake: current alcohol intake frequency: holidays/special occasions only Alcohol type: beer details: Daily intake substance use type: does not use caffeine: Yes Type: carbonated beverages Number of servings: 1 and coffee Number of servings: 20 ROS ROS ED Constitutional Constitutional ED: Denies chills or fever(s) Eyes Eyes: Denies blurry vision or change in vision ENT ENT ED: Denies rhinorrhea or sore throat Cardiovascular Cardiovascular: Denies chest pain or palpitations Respiratory/Chest Respiratory/Chest: Denies cough or dyspnea Gastrointestinal Gastrointestinal: Denies nausea or vomiting Genitourinary Genitourinary ED: Denies dysuria or hematuria Musculoskeletal Musculoskeletal: Denies back pain or neck pain Integumentary Denies abscess or rash Neurologic Neurologic: Denies headache(s) or weakness Allergic/Immunologic Allergic/Immunologic ED: Denies mouth swelling or urticaria EXAM Physical Exam Const Vital Signs: 11/30/23 09:48 11/30/23 10:35 11/30/23 11:45 Temperature 98 F 97.5 F L Temperature Source Temporal Pulse Rate 78 81 76 Pulse Rate [1 (Initial Baseline)] Pulse Rate [2] Pulse Rate [3] Pulse Rate [4] Pulse Rate [5] Respiratory Rate 16 16 13 Respiratory Rate [1 (Initial Baseline)] Respiratory Rate [2] Respiratory Rate [3] Respiratory Rate [4] Respiratory Rate [5] Blood Pressure 134/84 H 139/79 H Blood Pressure [1 (Initial Baseline)] Blood Pressure [2] Blood Pressure [3] Blood Pressure [4] Blood Pressure [5] Blood Pressure Mean 100 Pulse Ox 98 98 98 Oxygen Delivery Method Room Air Nasal Cannula Oxygen Delivery Method [1 (Initial Baseline)] Oxygen Delivery Method [2] Oxygen Delivery Method [3] Oxygen Delivery Method [4] Oxygen Delivery Method [5] Oxygen Flow Rate (L/min) 2 Oxygen Flow Rate (L/min) [1 (Initial Baseline)] Oxygen Flow Rate (L/min) [2] Oxygen Flow Rate (L/min) [3] Oxygen Flow Rate (L/min) [4] Oxygen Flow Rate (L/min) [5] 11/30/23 11:59 11/30/23 12:15 11/30/23 12:20 Temperature Temperature Source Pulse Rate Pulse Rate [1 (Initial Baseline)] 80 Pulse Rate [2] 75 Pulse Rate [3] 80 Pulse Rate [4] 75 Pulse Rate [5] 74 Respiratory Rate Respiratory Rate [1 (Initial Baseline)] 11 L Respiratory Rate [2] 14 Respiratory Rate [3] 17 Respiratory Rate [4] 11 L Respiratory Rate [5] 12 Blood Pressure Blood Pressure [1 (Initial Baseline)] 143/88 H Blood Pressure [2] 143/88 H Blood Pressure [3] 117/70 Blood Pressure [4] 124/71 H Blood Pressure [5] 120/76 Blood Pressure Mean Pulse Ox Oxygen Delivery Method Room Air Room Air Oxygen Delivery Method [1 (Initial Baseline)] Nasal Cannula Oxygen Delivery Method [2] Nasal Cannula Oxygen Delivery Method [3] Nasal Cannula Oxygen Delivery Method [4] Nasal Cannula Oxygen Delivery Method [5] Nasal Cannula Oxygen Flow Rate (L/min) Oxygen Flow Rate (L/min) [1 (Initial Baseline)] 2 Oxygen Flow Rate (L/min) [2] 2 Oxygen Flow Rate (L/min) [3] 2 Oxygen Flow Rate (L/min) [4] 2 Oxygen Flow Rate (L/min) [5] 2 11/30/23 12:25 11/30/23 12:25 Temperature Temperature Source Pulse Rate 74 Pulse Rate [1 (Initial Baseline)] Pulse Rate [2] Pulse Rate [3] Pulse Rate [4] Pulse Rate [5] Respiratory Rate 12 Respiratory Rate [1 (Initial Baseline)] Respiratory Rate [2] Respiratory Rate [3] Respiratory Rate [4] Respiratory Rate [5] Blood Pressure 130/78 H Blood Pressure [1 (Initial Baseline)] Blood Pressure [2] Blood Pressure [3] Blood Pressure [4] Blood Pressure [5] Blood Pressure Mean 93 Pulse Ox 96 Oxygen Delivery Method Room Air Oxygen Delivery Method [1 (Initial Baseline)] Oxygen Delivery Method [2] Oxygen Delivery Method [3] Oxygen Delivery Method [4] Oxygen Delivery Method [5] Oxygen Flow Rate (L/min) Oxygen Flow Rate (L/min) [1 (Initial Baseline)] Oxygen Flow Rate (L/min) [2] Oxygen Flow Rate (L/min) [3] Oxygen Flow Rate (L/min) [4] Oxygen Flow Rate (L/min) [5] Positive well nourished and well developed General Appearance ED: well developed and NAD HEENT Reports moist mucous membranes Neck full ROM and supple Extremity Extremity Narrative: There is tenderness over the medial aspect of the left knee. There are superficial abrasions over the anterior aspect of the left knee. There is no active bleeding noted. There is no surrounding erythema. There is no joint effusion noted. Extensor mechanism is intact there is some mild laxity and pain with valgus stress testing. There is no pain or laxity with varus stress testing. Ang's test was negative. There is tenderness and deformity over the right ankle. The ankle is deviated laterally compared to the lower leg. Range of motion was limited in all motions of the right ankle secondary to pain. Pedal pulses are equal bilaterally. Sensation was intact to light touch in all digits. Capillary refill was less than 2 seconds in all digits. Neuro oriented x3, CN's II-XII intact bilaterally, moves all extremities and no sensory deficits noted Sensorium / Orientation: alert Motor Exam: strength 5/5 throughout Psych mental status grossly normal Skin Skin Narrative: There is an abrasion over the medial aspect of the right ankle. It is unclear if this is a superficial abrasion or if this is a puncture wound from a bone fragment. There is also an abrasion over the anterior aspect of the knees bilaterally. There is no active bleeding noted. There is no erythema. Trauma: abrasion MDM MDM MDM Narrative Medical decision making narrative: Differential diagnosis includes fracture and dislocation of the right ankle, occult fracture of the left knee, left knee sprain, and contusion. X-rays of the left knee will be obtained to assess for occult fracture. X-rays of the right ankle will be obtained to assess for fracture and dislocation. Radiography Diagnostic Testing: Clinical Impression(s) from Imaging Studies Ankle X-Ray 11/30/23 11:10 IMPRESSION: Nondisplaced fracture of the distal portion of the fibula as well as an avulsion fracture of the medial malleolus. Asymmetry of the ankle mortise. Soft tissue swelling. Electronically Signed: Semaj Gomez MD at 11:56 EDT , Knee X-Ray 11/30/23 11:16 IMPRESSION: Nondisplaced fracture of the lateral tibial plateau. Small joint effusion. Electronically Signed: Semaj Gomez MD at 11:54 EDT , Ankle X-Ray 11/30/23 12:18 IMPRESSION: Satisfactory reduction. Electronically Signed: Semaj Gomez MD at 12:59 EDT , Lower Extremity CT 11/30/23 12:56 IMPRESSION: Minimally depressed tibial plateau fracture of the posterior aspect of the lateral tibial plateau with evidence of a joint effusion. Electronically Signed: Semaj Gomez MD at 13:40 EDT , Lower Extremity CT 11/30/23 13:03 IMPRESSION: Comminuted nondisplaced fracture of the distal fibular shaft. Mildly displaced avulsion fracture of the medial malleolus. Nondisplaced comminuted fracture of the posterior malleolus of the distal tibia. Soft tissue swelling and small joint effusion. Electronically Signed: Semaj Gomez MD at 13:43 EDT , X-rays of the right ankle were obtained. There are 3 views. On my independent interpretation, there is a fracture of the distal fibula and medial malleolus. There is some displacement of the talus laterally. Radiologist also interpreted the x-rays and agrees. X-rays of the left knee were obtained. There are 4 views. On my independent interpretation, there is a nondisplaced lateral tibial plateau fracture. There is a small joint effusion. There is no dislocation noted. Radiologist also interpreted the x-rays and agrees. Management Discussion w/another healthcare provider: Reconciliation Manager (Dr. Greene from orthopedics) Treatment and Re-Evaluation Narrative: IV line was established. Patient was given a dose of morphine. Patient was advised of the need for sedation and reduction of the ankle fracture. Patient was advised of the risks and benefits of procedural sedation. Patient is agreeable with this. Patient was given the opportunity ask questions. Patient had no further questions. Patient was placed on continuous cardiac and pulse ox on her monitors. Patient was given a dose of 80 mg of propofol. After adequate sedation, the ankle fracture was reduced. A posterior and sugar-tong splint was applied. This was custom made by myself. This was using 3 and 4 inch Ortho-Glass. Neurovascular exam was intact after reduction of the fracture and application of the splint. Patient tolerated the procedure well. Patient had no complications. Total sedation time was 12 minutes. Repeat x-rays of the right ankle will be obtained. There are 3 views. On my independent interpretation, there is improved alignment of the fracture fragments. Radiologist also interpreted the x-rays and agrees. Case was discussed with Dr. Greene from orthopedics. He recommended obtaining CT scans of the left knee and right ankle. These were obtained. There is a 1 mm displaced tibial plateau fracture on the left proximal tibia. There is preservation of the articular joint space of the lateral knee compartment. There is a joint effusion noted. This was interpreted by the radiologist was also independently reviewed by myself. CT scan of the right ankle was obtained. There is a comminuted nondisplaced fracture of the distal fibular shaft. There is mildly displaced avulsion fracture of the medial malleolus. There is a nondisplaced comminuted fracture of the posterior malleolus of the right distal tibia. This was interpreted by the radiologist was also independently reviewed by myself. Case was discussed with Dr. Greene again. He reviewed the CT scans and recommended transfer to a trauma center. Patient requested to go to [facility]. Case was discussed with Dr. Redding from [facility] emergency department. She accepted the patient to be transferred there. Patient understands and is agreeable with the plan. All questions were answered. Procedures Lower Extremity Splints Lower Extremity Splint: Orthoglass Splint Fabrication: Fabricated Location: Right Procedural Sedation 1 (Initial Baseline): Consent Signed: Yes Any Problems With Anesthesia: No You/Your family experience fever (hyperthermia) w/anesthesia: No Sedation medication: Propofol Dose: 80 Route: IV Maliampati Score: Class II ASA Classification: I Discharge Plan Triage Chief Complaint: Lower Extremity Injury ED Provider: Devaughn Sandy Dx/Rx/DC Orders Clinical Impression: Trimalleolar fracture of right ankle, Stage 1 mild COPD by GOLD classification, Tobacco use, Closed fracture of left tibial plateau, Fall Prescriptions: No Action aspirin [Adult Aspirin Regimen] 81 mg tablet,delayed release (DR/EC) 81 mg PO DAILY atorvastatin 80 mg tablet 80 mg PO QHS sildenafil [Viagra] 25 mg tablet 25 mg PO DAILY PRN Rx Instructions: administer 30 minutes to 4 hours before activity lisinopril 5 mg tablet 5 mg PO DAILY Qty: 90 3RF Brilinta 60 mg tablet 60 mg PO BID Qty: 180 3RF ascorbate calcium (vitamin C) 500 mg tablet 500 mg PO DAILY meloxicam 15 mg tablet 15 mg PO DAILY varenicline 1 mg tablet See Rx Instructions PO .COMPLEX Patient Comments: TAKE 1/2 TABLET (0.5MG) DAILY FOR 3 DAYS THEN TWICE DAILY FOR 4 DAYS THEN 1MG (1 TABLET) TWICE DAILY Rx Instructions: TAKE 1/2 TABLET (0.5MG) DAILY FOR 3 DAYS THEN TWICE DAILY FOR 4 DAYS THEN 1MG (1 TABLET) TWICE DAILY PO; fluticasone propionate 50 mcg/actuation spray,suspension 2 spray intranasal DAILY Qty: 18.2 11RF Rx Instructions: administer into each nostril Stiolto Respimat 2.5-2.5 mcg/actuation mist 2 inh inhalation DAILY Qty: 3 3RF ropinirole 2 mg tablet 2 mg PO DAILY Qty: 30 11RF omeprazole 20 mg capsule,delayed release(DR/EC) 40 mg PO DAILY fluoxetine 40 mg capsule 40 mg PO DAILY isosorbide mononitrate 60 mg tablet extended release 24 hr 60 mg PO calcium carbonate 600 mg calcium (1,500 mg) tablet 600 mg PO DAILY montelukast 10 mg tablet 10 mg PO QHS metoprolol succinate 25 mg tablet extended release 24 hr 25 mg PO QHS testosterone cypionate 200 mg/mL oil 100 mg IM metformin 500 mg tablet extended release 24 hr 1,000 mg PO DAILY cholecalciferol (vitamin D3) 1,250 mcg (50,000 unit) capsule 1,250 mcg PO QWEEK nitroglycerin 0.4 mg tablet, sublingual 0.4 mg sublingual Q5-15M PRN Rx Instructions: do not exceed 3 doses per episode albuterol sulfate 90 mcg/actuation HFA aerosol inhaler 2 puff INHALATION Q6H PRN (Reason: shortness of breath or wheezing) Qty: 18 6RF Primary Care Provider: Mario Edmonds Referrals: Mario Edmonds MD [Primary Care Provider] - Print Language: Citizen Of [place] Disposition Disposition: Acute Care Hospital Discharge Location: [facility]
[2023-11-30] MEDS: Morphine 4 MG/ML Syringe IV ×2 (10:47→13:57)
[2023-11-30] MEDS: Ondansetron 4 MG/2 ML Vial IV (10:48)
--- NOTE | 2023-11-30 11:10 | RAD_ITS ---
STUDY: X-RAY - RIGHT ANKLE REASON FOR EXAM: Male, 58 years old. Injury/Pain TECHNIQUE: 3 view(s) of the ankle. COMPARISON: None. FINDINGS: Nondisplaced oblique fracture of the distal fibular shaft. Nondisplaced avulsion fracture of the medial malleolus. Asymmetry of the ankle mortise. Spur is seen at the insertion of the Achilles tendon. The visualized subtalar, talonavicular, calcaneocuboid and tarsal articulations are normal. Soft tissue swelling. RAD/Ankle min 3 Views IMPRESSION: Nondisplaced fracture of the distal portion of the fibula as well as an avulsion fracture of the medial malleolus. Asymmetry of the ankle mortise. Soft tissue swelling. Electronically Signed: Semaj Gomez MD at 11:56 EDT ,
--- NOTE | 2023-11-30 11:16 | RAD_ITS ---
STUDY: X-RAY - LEFT KNEE REASON FOR EXAM: Male, 58 years old. Injury/Pain TECHNIQUE: 4 view(s) of the knee. COMPARISON: None. FINDINGS: Normal visualized distal femur. Nondisplaced fracture of the lateral tibial plateau. No significant depression is seen. Normal proximal tibiofibular articulation. Normal medial femorotibial compartment. Normal lateral femorotibial compartment. Normal patellofemoral articulation. Small joint effusion. RAD/Knee 4 or More Views IMPRESSION: Nondisplaced fracture of the lateral tibial plateau. Small joint effusion. Electronically Signed: Semaj Gomez MD at 11:54 EDT ,
--- NOTE | 2023-11-30 12:18 | RAD_ITS ---
STUDY: X-RAY - RIGHT ANKLE REASON FOR EXAM: Male, 58 years old. Injury/Pain TECHNIQUE: 3 view(s) of the ankle. COMPARISON: Comparison is made with prior study done earlier in the day. Satisfactory reduction of the distal fibular fracture and medial malleolar fracture. The ankle mortise appears to be symmetrical. Normal visualized talus and calcaneus. The visualized subtalar, talonavicular, calcaneocuboid and tarsal articulations are normal. Soft tissue swelling. RAD/Ankle min 3 Views IMPRESSION: Satisfactory reduction. Electronically Signed: Semaj Gomez MD at 12:59 EDT ,
[2023-11-30] MEDS: Propofol 200 MG/20 ML Vial IV BOLUS (12:46)
--- NOTE | 2023-11-30 12:56 | CT_ITS ---
STUDY: CT LEFT KNEE WITHOUT CONTRAST REASON FOR EXAM: Male, 58 years old. Fracture left knee RADIATION DOSAGE (If Supplied By Facility): CTDIvol = ( 15.35 ) mGy, DLP = ( 549.49 ) mGycm TECHNIQUE: Transaxial CT imaging of the knee was performed. Coronal and sagittal images were reformatted. Individualized dose optimization techniques were used for this CT. COMPARISON: Comparison is made with prior radiographs done earlier today. FINDINGS: Normal medial femoral condyle and medial tibial plateau. There is preservation of the articular joint space of the medial knee compartment. There is evidence of a slightly depressed fracture of the long the posterior aspect of the lateral tibial plateau. The depression is approximately 1 mm. There is preservation of the articular joint space of the lateral knee compartment. Normal proximal tibiofibular articulation. Joint effusion. The quadriceps tendon is grossly normal. The patellar tendon is grossly normal. Normal Hoffa''s fat pad. The soft tissues are unremarkable. CT/Extremity Lower without Contra IMPRESSION: Minimally depressed tibial plateau fracture of the posterior aspect of the lateral tibial plateau with evidence of a joint effusion. Electronically Signed: Semaj Gomez MD at 13:40 EDT ,
--- NOTE | 2023-11-30 13:03 | CT_ITS ---
STUDY: CT RIGHT ANKLE WITHOUT CONTRAST REASON FOR EXAM: Male, 58 years old. Right ankle fracture RADIATION DOSAGE (If Supplied By Facility): CTDIvol = ( 15.35 ) mGy, DLP = ( 380.63 ) mGycm TECHNIQUE: Thin section transaxial imaging of the ankle was obtained, with sagittal and coronal reconstructed images. Individualized dose optimization techniques were used for this CT. COMPARISON: Comparison is made with prior radiographs done earlier today. FINDINGS: Nondisplaced comminuted fracture of the distal fibular shaft. Comminuted nondisplaced fracture of the posterior malleolus of the distal tibia as well as the medial malleolus. Asymmetry of the ankle mortise. Normal talus, calcaneus, navicular and cuboid tarsal bones. Normal subtalar, talonavicular and calcaneocuboid articulations. Normal navicular-cuneiform, cuneiform tarsal bones and intercuneiform articulations. Normal tarsometatarsal articulations and visualized metatarsi. Soft tissue swelling. Ankle joint effusion. CT/Extremity Lower without Contra IMPRESSION: Comminuted nondisplaced fracture of the distal fibular shaft. Mildly displaced avulsion fracture of the medial malleolus. Nondisplaced comminuted fracture of the posterior malleolus of the distal tibia. Soft tissue swelling and small joint effusion. Electronically Signed: Semaj Gomez MD at 13:43 EDT ,
[2023-11-30] MEDS: Cefazolin 1 GM/50 ML BAG IV (13:31)
--- NOTE | 2023-11-30 13:36 | ED.RN ---
knee immobilizer applied to left knee. pt tolerated well.
--- NOTE | 2023-11-30 15:44 | ED.RN ---
this RN called report to an RN at [facility].
== END 2023-11-30 15:45 | disposition short-term general hospital (02) ==
PROVIDERS: Emergency Provider Emergency Medicine; PCP Family Medicine; Visit Provider Emergency Medicine
DX: S82.851A Displaced trimalleolar fracture of right lower leg, initial encounter for closed fracture (principal); J44.9 Chronic obstructive pulmonary disease, unspecified; E78.5 Hyperlipidemia, unspecified; I10 Essential (primary) hypertension; I25.10 Atherosclerotic heart disease of native coronary artery without angina pectoris; W01.0XXA Fall on same level from slipping, tripping and stumbling without subsequent striking against object, initial encounter; K21.9 Gastro-esophageal reflux disease without esophagitis; Z95.5 Presence of coronary angioplasty implant and graft; Z79.84 Long term (current) use of oral hypoglycemic drugs; Z79.899 Other long term (current) drug therapy; Z87.891 Personal history of nicotine dependence; S82.454A Nondisplaced comminuted fracture of shaft of right fibula, initial encounter for closed fracture; S82.51XA Displaced fracture of medial malleolus of right tibia, initial encounter for closed fracture; S82.64XA Nondisplaced fracture of lateral malleolus of right fibula, initial encounter for closed fracture; S82.434A Nondisplaced oblique fracture of shaft of right fibula, initial encounter for closed fracture; S82.125A Nondisplaced fracture of lateral condyle of left tibia, initial encounter for closed fracture
CPT/HCPCS: 27762; 27788; 29515; 73564; 73610; 73700; 96365; 96375; 96376; 99156; 99285; J7030; J7050; A4216; J2405

== ENCOUNTER 2024-05-06 12:00 | Outpatient (RCR) | payer OTHER, SELFPAY ==
--- NOTE | 2024-01-28 17:26 | HP.PTEVAL ---
Patient's Visit Information Visit Information Visit Information: JULIA SAHNI is a 58 year old M referred to Physical Therapy by Vinicio Martines MD with a diagnosis of CLOSED FX OF LATERAL LEFT TIBIAL PLATEUA ,CLOSED DISPLACED PILON FX TIBIA. Date of Evaluation: 01/23/24 Physical Therapist: Chon Holland, PT, Cert MDT, OCS Visit Plan Frequency: 2-3x /Week Duration: 4-6 Weeks Plan: PATIENT IS NWB BLE USES W/C SLIDING TRANSFER TO MAT PT INTERVENTIONS FOCUS ON ROM/FLEXABILITY RIGHT ANKLE/HIP/KNEE ,STRENGTHENING EX'S HIP/KNEE/ANKLE ,PROGRESSION WB ,CLOSED CHAIN STRENGTHENING AND GAIT/BALANCE TRAINING PER MD ORDER Subjective Subjective: This 58 y/o male presents to physical therapy with right ORIF plates /screws heidy due pilon fracture right tibia ankle ,and ORIF left tibia with L shape ORIF due to left tibial fracture on November 30 with external fixator at [facility] then 2weeks December 20 later did right tibia pilon fracture with ORIF . Patient was in [facility] 2 weeks and D/C to 01/03/24 then return 2nd surgery Dec 20 on right ankle tibia with wound vac ,eventually 12/20/24 home with NWB BLE. Patient used w/c . Patient seen January 10 recommended PT. X-rays looked good. Patient initial injury occurred November 29 slipped on rug at work,went [facility] which had had x-rays and CT Scan thus due complexity of fractures . Patient lives in [address] in garage . Patient has tub/shower ,with shower chair, Spouse assist with ADL's dressing,bathing does cooking . Patient denies paresthesia/tingling. Patient stopped oxycodone and other pain medication. Patient wound vac removed 7 days after surgery. Patient sleeping okay in bed. Patient condition affects QOL/function and walking. Patient goals return to prior level function. RTD Mar 03 . VOCATION: [employer] SOCIAL: Pain Right Ankle: Pain Intensity (Out of 10): 5 Pain Intensity Range: 10 Left Knee: Pain Intensity (Out of 10): 1 Pain Intensity Range: 10 Objective Objective: POSTURE: WFL posterior pelvic tilt NEURO: denies paresthesia/tingling SKIN: incision bilateral legs intact dry AROM: supine knee flexion 0-120 degrees right ,left 0-135 degrees ,ankle dorsiflexion 20 degrees from 0m , MOBILITY: w/c level due to being NWB BLE TRANSFERS :sliding to mat ( w/c -mat) FLEXABILITY: hamstrings mod tight ,GS -Severe tight MMT: ( peak force) left hip flexion 36.8 ,right 32.1,quads 27.1 right left 17.5 ,hamstrings 26 .1 right ,13.8 left right ankle 0/5,left 4/5 Balance/Special Test Scores Lower Extremity Functional Score: 8 Goals Goal 1:: Patient to be I with HEP Goal Time Frame: 12-16 Weeks Goal 2:: Patient to improve peak force quads/hams/hip and right ankle by 10-20 # to improve gait Goal Time Frame: 12-16 Weeks Goal 3:: Patient to improve ankle AROM especially dorsiflexion to improve gait and stairs Goal Time Frame: 12-16 Weeks Goal 4:: Patient to ambulated with least restrictive device community distance with WBAT BLE per MD Goal Time Frame: 12-16 Weeks Goal 5:: Patient to improve LFES score by 10-15 points to improve QOL and function. Goal Time Frame: 12-16 Weeks Goal 6:: Patient to improve balance for function and gait to good Goal Time Frame: 12-16 Weeks Rehabilitation Potential Physical Therapy Diagnosis: This patient had ORIF left tibia /ankle and ORIF left L-shape with patient being NWB ,unable to ambulate ,decrease ROM BLE especially right ankle weakness impairs all ADLS and function and unable to RTW thus benefit from skilled PT Rehabilitation Potential: Good Anticipated Interventions Patient/Client Instruction: Educate patient on: Condition and Plan of Care For the Purpose of:: To decrease pain, To increase ROM, To improve muscle performance and motor function, To improve ability to perform ADL's, To increase tolerance to activity/condition/position, To improve ability of physical actions for home/community/work/leisure, To improve gait and locomotor functions, To decrease soft tissue restriction, To increase flexibility/ROM, To improve endurance, To improve balance, To improve safety with gait, To reduce risk of recurrence and To improve tolerance to ADL's Therapeutic Exercise to Include: Strength training, Endurance training, Balance training, Flexibilty training, Gait and locomotor training and Active ROM Comment: HIP/KNEE/ANKLE PROGRESS TO GAIT ,WB PROGRESSION , STRENGTHENING PER MD ORDER For the Purpose of:: To decrease pain, To increase ROM, To improve muscle performance and motor function, To improve ability to perform ADL's, To increase tolerance to activity/condition/position, To improve performance and independence with ADL's, To improve ability of physical actions for home/community/work/leisure, To improve gait and locomotor functions, To improve health of tissue, To decrease soft tissue restriction, To increase flexibility/ROM, To improve endurance, To improve balance, To reduce risk of recurrence and To improve tolerance to ADL's Vasopneumatic device: Yes For the Purpose of:: To decrease swelling/inflammation, To improve health of tissue and To decrease soft tissue restriction Text: Thank you for the opportunity to evaluate your patient. For Medicare and Medicare HMO plans, please review the plan of care and approve it. It will need to be FAXED BACK to us at [phone] for Medicare purposes. For Medicare only, by signing this I certify the plan of care. Please let me know if there are questions or concerns regarding this plan of care. Physician Signature: Date:
== END 2024-05-06 19:00 | disposition home or self-care (01) ==
LOC: PT 12:00
PROVIDERS: PCP Family Medicine; Referring Provider Student in an Organized Health Care Education/Training Program; Visit Provider Student in an Organized Health Care Education/Training Program
DX: S82.122D Displaced fracture of lateral condyle of left tibia, subsequent encounter for closed fracture with routine healing (principal); S82.871D Displaced pilon fracture of right tibia, subsequent encounter for closed fracture with routine healing
CPT/HCPCS: 97110; 97162; 97530